=== PATIENT | male | born 1975 | race African-American/Black ===

== ENCOUNTER 2019-10-21 10:27 | Emergency (ER) | payer SELFPAY ==
[2019-10-21] MEDS ORDERED: Ketorolac Tromethamine 30 MG/ML VIAL ONE ×2 (11:24→11:28)
== END 2019-10-21 12:04 | disposition home or self-care (01) ==
LOC: ERS 10:27
DX: R51 Headache (principal); R09.81 Nasal congestion; I10 Essential (primary) hypertension; F17.210 Nicotine dependence, cigarettes, uncomplicated
CPT/HCPCS: 96372; 99283; J1885

== ENCOUNTER 2021-08-21 18:45 | Inpatient (IN) | payer MEDICAID, SELFPAY ==
[2021-08-21 19:16] LABS: #Lymphocytes 1.8 thou/uL (1.20-3.40); #Monocytes 1.3 thou/uL (0.11-0.59); #Neutrophils 9.3 thou/uL (1.40-6.50); %Basophils 0.3 % (0.0-1.0); %Eosinophils 7.5 % (0.0-10.0); %Lymphocytes 13.2 % (21.0-51.0); %Monocytes 9.7 % (0.0-10.0); %Neutrophils 69.3 % (42.0-75.0); Hemoglobin 15.3 g/dL (14.0-18.0); Mean Corpuscular HGB CONC 32.5 g/dL (32.0-36.0); Mean Corpuscular Hemoglobin 32.5 pg (27.0-31.0); Mean Platelet Volume 6.9 fL (7.4-10.4); Platelet Count 196 thou/uL (130-400); Red Blood Cell (RBC) Count 4.71 mill/uL (4.70-6.10); White Blood Cell (WBC) Count 13.5 thou/uL (4.8-10.8)
[2021-08-21 19:51] LABS: ALT (SGPT) 21 U/L (8-55); AST (SGOT) 15 U/L (5-34); Albumin 4.3 g/dL (3.5-5.0); Alkaline Phosphatase 51 U/L (40-110); Anion Gap 16 mmol/L (10-20); BUN (Urea Nitrogen) 8 mg/dL (8.9-20.6); Bilirubin, Total 0.5 mg/dL (0.2-1.2); Calc. Creatinine Clearance 0 mL/min (70-130); Calcium 8.8 mg/dL (7.8-10.44); Carbon Dioxide 26 mmol/L (22-29); Chloride 104 mmol/L (98-107); Globulin 2.9 g/dL (2.4-3.5); Glucose 182 mg/dL (70-105); Potassium 4.2 mmol/L (3.5-5.1); Protein, Total 7.2 g/dL (6.0-8.3); Sodium 142 mmol/L (136-145)
[2021-08-21] MEDS ORDERED: Furosemide 40 MG/4 ML VIAL ONE ×2 (20:35→20:36)
[2021-08-21] MEDS ORDERED: Acetaminophen 650 MG Suppository PR PRN (21:21)
[2021-08-21] MEDS ORDERED: Ondansetron ODT 4 MG TAB PO PRN (21:21)
[2021-08-21] MEDS ORDERED: Ondansetron PF 4 MG/2 ML Vial IVP PRN (21:21)
[2021-08-21] MEDS ORDERED: Acetaminophen 325 MG TAB PO PRN (21:21)
[2021-08-21] MEDS ORDERED: HumaLOG 300 UNITS/3 ML VIAL SC PRN (21:25)
[2021-08-21] MEDS ORDERED: Dextrose 5% in Water 1,000 ML IV PRN (21:25)
[2021-08-21] MEDS ORDERED: Dextrose 50% Abboject 50 ML SYRINGE SLOW IVP PRN (21:25)
[2021-08-21] MEDS ORDERED: methylPREDNISolone Sod Succ 40 MG VIAL IVP SCH (22:00)
[2021-08-21 22:34] LABS: SARS-CoV-2 NAA Rapid Test DETECTED (NotDetected)
[2021-08-21] MEDS: Azithromycin 500 MG in Sodium Chloride 0.9% 250 ML 250 ML IVPB SCH (23:37)
[2021-08-21] MEDS ORDERED: Enoxaparin Sodium 40 MG/0.4 ML SYRINGE SC SCH (23:59)
[2021-08-22] MEDS ORDERED: hydrALAZINE 20 MG/ML VIAL SLOW IVP PRN (00:09)
[2021-08-22 00:15] VITALS: BMI 44.4
[2021-08-22 00:15] LABS: Actual Bicarbonate (HCO3v) 30 mEq/L (22-28); Base Excess 3.2 mEq/L (-2.0 to +3.0); Calcium, Ionized (venous) 1.09 mmol/L (1.16-1.32); Chloride (VBG) 96 mmol/L (98-106); Hemoglobin (Hb) 16.6 g/dL (13.1-17.2); Potassium (VBG) 4.66 mmol/L (3.70-5.30); Sodium 139.1 mmol/L (133-146); pH (venous) 7.37 (7.32-7.43)
[2021-08-22] MEDS ORDERED: Benzonatate 100 MG CAP PO PRN (00:16)
[2021-08-22] MEDS ORDERED: Pantoprazole 40 MG VIAL IVP SCH (00:30)
[2021-08-22 00:52] LABS: Hemoglobin A1c 6.9 % (4.0-6.0)
[2021-08-22] MEDS ORDERED: Albuterol 200 PUFF (6.7GM INHALER) INH PRN (02:19)
[2021-08-22 03:45] LABS: #Lymphocytes 0.7 thou/uL (1.20-3.40); #Neutrophils 15.5 thou/uL (1.40-6.50); %Basophils 0.2 % (0.0-1.0); %Eosinophils 0.2 % (0.0-10.0); %Monocytes 0.3 % (0.0-10.0); %Neutrophils 95.4 % (42.0-75.0); Hemoglobin 15.7 g/dL (14.0-18.0); Mean Corpuscular Hemoglobin 31.3 pg (27.0-31.0); Mean Platelet Volume 7.2 fL (7.4-10.4); Platelet Count 200 thou/uL (130-400); RBC Distribution Width 12.9 % (11.5-14.5); Red Blood Cell (RBC) Count 5.01 mill/uL (4.70-6.10); White Blood Cell (WBC) Count 16.2 thou/uL (4.8-10.8)
[2021-08-22 04:07] LABS: Anion Gap 16 mmol/L (10-20); BUN (Urea Nitrogen) 11 mg/dL (8.9-20.6); Calc. Creatinine Clearance 164 mL/min (70-130); Calcium 9.8 mg/dL (7.8-10.44); Carbon Dioxide 28 mmol/L (22-29); Chloride 97 mmol/L (98-107); Glucose 324 mg/dL (70-105); Potassium 5.1 mmol/L (3.5-5.1); Sodium 136 mmol/L (136-145)
[2021-08-22] MEDS: HumaLOG 300 UNITS/3 ML VIAL SC PRN ×2 (05:45→11:49)
[2021-08-22] MEDS: Albuterol 200 PUFF (6.7GM INHALER) INH SCH ×3 (08:33→20:56)
[2021-08-22] MEDS ORDERED: methylPREDNISolone Sod Succ 40 MG VIAL IVP SCH ×2 (09:00→21:00)
[2021-08-22] MEDS ORDERED: Enoxaparin Sodium 40 MG/0.4 ML SYRINGE SC SCH (09:00)
[2021-08-22] MEDS: Enoxaparin Sodium 40 MG/0.4 ML SYRINGE SC SCH ×2 (09:24→20:56)
[2021-08-22] MEDS: Furosemide 40 MG/4 ML VIAL SLOW IVP SCH (09:24)
[2021-08-22] MEDS: Pantoprazole 40 MG VIAL IVP SCH (09:25)
[2021-08-22] MEDS: Ascorbic Acid 500 mg Chewable Tablet PO SCH (09:26)
[2021-08-22] MEDS: Cholecalciferol (Vitamin D3) 400 UNITS TAB PO SCH (09:26)
[2021-08-22] MEDS: guaiFENesin ER 600 MG TAB PO SCH ×2 (09:26→20:58)
[2021-08-22] MEDS: Zinc Sulfate 220 MG CAP PO SCH (09:26)
[2021-08-22] MEDS: Azithromycin 500 MG in Sodium Chloride 0.9% 250 ML 250 ML IVPB SCH (20:57)
[2021-08-22] MEDS ORDERED: Lantus 1000 UNITS/10 ML VIAL SC SCH (21:00)
[2021-08-23] MEDS: Albuterol 200 PUFF (6.7GM INHALER) INH SCH ×2 (02:01→06:38)
[2021-08-23 05:34] LABS: Band 1 % (5-11); Hemoglobin 14.7 g/dL (14.0-18.0); Lymphocytes 2 % (21-51); MDiff Complete? YES; Mean Corpuscular HGB CONC 31.4 g/dL (32.0-36.0); Mean Corpuscular Hemoglobin 31.4 pg (27.0-31.0); Mean Platelet Volume 7.3 fL (7.4-10.4); Monocytes 11 % (0-10); Neutrophil 86 % (42-75); Platelet Count 183 thou/uL (130-400); Platelet Morphology Comment Appears Adequate; RBC Distribution Width 13.2 % (11.5-14.5); RBC Morphology Normal; Red Blood Cell (RBC) Count 4.69 mill/uL (4.70-6.10); White Blood Cell (WBC) Count 23.4 thou/uL (4.8-10.8)
[2021-08-23 05:42] LABS: Anion Gap 13 mmol/L (10-20); BUN (Urea Nitrogen) 17 mg/dL (8.9-20.6); CRP (Inflammatory) 1.27 mg/dL (= or < 0.5); Calc. Creatinine Clearance 204 mL/min (70-130); Calcium 9.4 mg/dL (7.8-10.44); Carbon Dioxide 28 mmol/L (22-29); Chloride 97 mmol/L (98-107); Glucose 269 mg/dL (70-105); Potassium 4.3 mmol/L (3.5-5.1); Sodium 134 mmol/L (136-145)
[2021-08-23] MEDS ORDERED: predniSONE 20 MG TAB PO SCH (08:00)
[2021-08-23] MEDS: Ascorbic Acid 500 mg Chewable Tablet PO SCH (08:27)
[2021-08-23] MEDS: Cholecalciferol (Vitamin D3) 400 UNITS TAB PO SCH (08:27)
[2021-08-23] MEDS: Enoxaparin Sodium 40 MG/0.4 ML SYRINGE SC SCH (08:28)
[2021-08-23] MEDS: Furosemide 40 MG/4 ML VIAL SLOW IVP SCH (08:28)
[2021-08-23] MEDS: Pantoprazole 40 MG VIAL IVP SCH (08:30)
[2021-08-23] MEDS: guaiFENesin ER 600 MG TAB PO SCH (08:30)
[2021-08-23] MEDS: Zinc Sulfate 220 MG CAP PO SCH (08:30)
[2021-08-23] MEDS: HumaLOG 300 UNITS/3 ML VIAL SC PRN (11:12)
[2021-08-23 12:31] VITALS: BP 103/67; TEMP 98
== END 2021-08-23 12:24 | disposition home or self-care (01) | DRG 177 ==
LOC: ERS 18:45 → IMCU/EMU 20:18 → 2SW 08-22 14:49
PROVIDERS: ADMIT Student in an Organized Health Care Education/Training Program; ATTEND Family Medicine
DX: U07.1 COVID-19 (principal); J96.01 Acute respiratory failure with hypoxia; J44.0 Chronic obstructive pulmonary disease with (acute) lower respiratory infection; I10 Essential (primary) hypertension; E11.9 Type 2 diabetes mellitus without complications; E66.01 Morbid (severe) obesity due to excess calories; Z68.42 Body mass index [BMI] 45.0-49.9, adult; Z79.84 Long term (current) use of oral hypoglycemic drugs; Z79.51 Long term (current) use of inhaled steroids; Z79.52 Long term (current) use of systemic steroids; Z79.899 Other long term (current) drug therapy; Z87.891 Personal history of nicotine dependence
CPT/HCPCS: 36415; 36416; 71045; 80048; 80053; 82607; 82728; 82746; 82805; 83036; 83880; 84484; 85025; 85379; 86140; 93005; 94640; 94660; 96374; C9113; J0360; J0456; J1650; J1815; J1940; J2920; J7050; J7512; J7620; U0002

== ENCOUNTER 2021-08-27 16:09 | Inpatient (IN) | payer MEDICAID ==
[~2021-08-27 16:09] MED LIST: Iopamidol-370 76% 500 ML 1 ML ONE
[2021-08-27] MEDS ORDERED: Acetaminophen 500 MG TAB ONE (16:32)
[2021-08-27] MEDS ORDERED: Sodium Chloride 0.9% 100 ML ONE (16:47)
[2021-08-27] MEDS ORDERED: Vancomycin 1 GM/200 ML BAG ONE ×2 (16:47→16:48)
[2021-08-27] MEDS ORDERED: Cefepime 2 GM VIAL ONE (16:47)
[2021-08-27] MEDS ORDERED: Morphine 4 MG/ML VIAL ONE (16:48)
[2021-08-27] MEDS ORDERED: Albuterol 200 PUFF (6.7GM INHALER) ONE (16:54)
[2021-08-27] MEDS ORDERED: Dexamethasone 4 mg/ml Vial ONE (16:56)
[2021-08-27 17:00] LABS: #Lymphocytes 1.8 thou/uL (1.20-3.40); #Monocytes 0.5 thou/uL (0.11-0.59); #Neutrophils 5.6 thou/uL (1.40-6.50); %Eosinophils 0.6 % (0.0-10.0); %Lymphocytes 22.7 % (21.0-51.0); %Monocytes 6.2 % (0.0-10.0); %Neutrophils 70.5 % (42.0-75.0); Hemoglobin 15.2 g/dL (14.0-18.0); Mean Corpuscular HGB CONC 32.6 g/dL (32.0-36.0); Mean Corpuscular Hemoglobin 31.9 pg (27.0-31.0); Mean Corpuscular Volume 97.8 fL (78.0-98.0); Mean Platelet Volume 7.5 fL (7.4-10.4); Platelet Count 157 thou/uL (130-400); RBC Distribution Width 12.7 % (11.5-14.5); Red Blood Cell (RBC) Count 4.77 mill/uL (4.70-6.10)
[2021-08-27 17:21] LABS: ALT (SGPT) 23 U/L (8-55); AST (SGOT) 21 U/L (5-34); Albumin 3.8 g/dL (3.5-5.0); Alkaline Phosphatase 42 U/L (40-110); Anion Gap 11 mmol/L (10-20); BUN (Urea Nitrogen) 9 mg/dL (8.9-20.6); Bilirubin, Total 0.7 mg/dL (0.2-1.2); Calc. Creatinine Clearance 0 mL/min (70-130); Calcium 8.9 mg/dL (7.8-10.44); Carbon Dioxide 33 mmol/L (22-29); Chloride 94 mmol/L (98-107); Globulin 3.4 g/dL (2.4-3.5); Glucose 153 mg/dL (70-105); Lipase 5 U/L (8-78); Potassium 3.6 mmol/L (3.5-5.1); Protein, Total 7.2 g/dL (6.0-8.3); Sodium 134 mmol/L (136-145)
[2021-08-27] MEDS ORDERED: HYDROcodone/Acetaminophen 7.5/325 mg Tablet PO PRN (20:21)
[2021-08-27] MEDS ORDERED: Bisacodyl 5 MG TAB PO PRN (20:21)
[2021-08-27] MEDS ORDERED: HYDROcodone/Acetaminophen 5/325 mg Tablet PO PRN (20:21)
[2021-08-27] MEDS ORDERED: Calcium Carbonate 500 MG ChewTAB PO PRN (20:21)
[2021-08-27] MEDS ORDERED: Senokot S 8.6-50 MG TAB PO PRN (20:21)
[2021-08-27] MEDS ORDERED: Guaifenesin DM 100-10/5 ML UDCUP PO PRN (20:21)
[2021-08-27] MEDS ORDERED: Ondansetron PF 4 MG/2 ML Vial IVP PRN (20:21)
[2021-08-27] MEDS ORDERED: Acetaminophen 325 MG TAB PO PRN (20:21)
[2021-08-27] MEDS ORDERED: Melatonin 3 MG TAB PO PRN (20:28)
[2021-08-27] MEDS ORDERED: Dextrose 50% Abboject 50 ML SYRINGE SLOW IVP PRN (20:56)
[2021-08-27] MEDS ORDERED: Dextrose 5% in Water 1,000 ML IV PRN (20:56)
[2021-08-27] MEDS ORDERED: Dexamethasone 10 MG/ML VIAL SLOW IVP SCH (21:00)
[2021-08-27] MEDS ORDERED: Cholecalciferol (Vitamin D3) 400 UNITS TAB PO SCH (21:15)
[2021-08-27] MEDS ORDERED: Zinc Sulfate 220 MG CAP PO SCH (21:15)
[2021-08-27] MEDS ORDERED: Ascorbic Acid 500 mg Chewable Tablet PO SCH (21:15)
[2021-08-27 21:18] LABS: Troponin I Less than 0.010 ng/mL (< 0.028)
[2021-08-27] MEDS: Apixaban 5 MG TAB PO SCH (21:27)
[2021-08-27] MEDS: Famotidine/PF 20 mg/2ml Vial SLOW IVP SCH (21:27)
[2021-08-27 21:55] VITALS: BMI 45.0
[2021-08-27] MEDS ORDERED: Vancomycin 1.5 GRAM/300 ML BAG 1.5 GM in Premix Bag 1 BAG IVPB SCH (22:00)
[2021-08-27] MEDS ORDERED: hydrALAZINE 20 MG/ML VIAL SLOW IVP PRN (22:09)
[2021-08-27] MEDS ORDERED: Non-Formulary Item 1 EACH (Albuterol Sulfate Hfa (Or) 200 PUFF Inh) INH SCH (23:59)
[2021-08-28] MEDS: Albuterol 200 PUFF (6.7GM INHALER) INH SCH ×4 (00:13→18:30)
[2021-08-28] MEDS: Cefepime 2 GM in Sodium Chloride 0.9% 100 ML IVPB SCH ×2 (05:09→16:25)
[2021-08-28] MEDS ORDERED: Dexamethasone 10 MG/ML VIAL SLOW IVP SCH (06:00)
[2021-08-28] MEDS: VANCOMYCIN 2 GRAM/400 ML BAG 2 GM in Premix Bag 1 BAG IVPB SCH ×3 (06:21→22:06)
[2021-08-28] MEDS: Famotidine/PF 20 mg/2ml Vial SLOW IVP SCH ×2 (08:44→20:38)
[2021-08-28] MEDS: Apixaban 5 MG TAB PO SCH ×2 (08:44→20:39)
[2021-08-28] MEDS: Ascorbic Acid 500 mg Chewable Tablet PO SCH (08:44)
[2021-08-28] MEDS: Cholecalciferol (Vitamin D3) 400 UNITS TAB PO SCH (08:44)
[2021-08-28] MEDS ORDERED: Zinc Sulfate 220 MG CAP PO SCH (09:00)
[2021-08-28 09:15] LABS: Albumin 3.6 g/dL (3.5-5.0)
[2021-08-28 09:16] LABS: Chloride 97 mmol/L (98-107); Potassium 4.5 mmol/L (3.5-5.1); Sodium 133 mmol/L (136-145)
[2021-08-28 09:17] LABS: Glucose 250 mg/dL (70-105)
[2021-08-28 09:18] LABS: Globulin 3.5 g/dL (2.4-3.5); Protein, Total 7.1 g/dL (6.0-8.3)
[2021-08-28 09:19] LABS: Anion Gap 14 mmol/L (10-20); Carbon Dioxide 27 mmol/L (22-29)
[2021-08-28 09:20] LABS: Alkaline Phosphatase 41 U/L (40-110); Bilirubin, Total 0.5 mg/dL (0.2-1.2)
[2021-08-28 09:21] LABS: Calc. Creatinine Clearance 240 mL/min (70-130)
[2021-08-28 09:22] LABS: BUN (Urea Nitrogen) 10 mg/dL (8.9-20.6)
[2021-08-28 09:23] LABS: AST (SGOT) 17 U/L (5-34)
[2021-08-28 09:24] LABS: ALT (SGPT) 23 U/L (8-55)
[2021-08-28] MEDS: HumaLOG 300 UNITS/3 ML VIAL SC PRN ×4 (11:28→22:06)
[2021-08-28] MEDS ORDERED: metFORMIN 500 MG TAB PO SCH (17:00)
[2021-08-28] MEDS: Dexamethasone 10 MG/ML VIAL SLOW IVP SCH (20:39)
[2021-08-28] MEDS: Lantus 1000 UNITS/10 ML VIAL SC SCH ×3 (20:39→22:05)
[2021-08-28 21:38] LABS: Vancomycin, Trough 13.3 ug/mL
[2021-08-29] MEDS: Albuterol 200 PUFF (6.7GM INHALER) INH SCH ×4 (00:23→18:26)
[2021-08-29] MEDS: HumaLOG 300 UNITS/3 ML VIAL SC PRN ×3 (05:33→17:05)
[2021-08-29] MEDS: Cefepime 2 GM in Sodium Chloride 0.9% 100 ML IVPB SCH ×2 (05:33→17:04)
[2021-08-29] MEDS: VANCOMYCIN 2 GRAM/400 ML BAG 2 GM in Premix Bag 1 BAG IVPB SCH (06:26)
[2021-08-29 07:26] LABS: #Eosinphils 0.1 thou/uL (0.0-0.7); #Lymphocytes 1.1 thou/uL (1.20-3.40); #Monocytes 0.6 thou/uL (0.11-0.59); #Neutrophils 10.4 thou/uL (1.40-6.50); %Eosinophils 0.6 % (0.0-10.0); %Lymphocytes 9.3 % (21.0-51.0); %Monocytes 4.7 % (0.0-10.0); %Neutrophils 85.4 % (42.0-75.0); Hemoglobin 15.4 g/dL (14.0-18.0); Mean Corpuscular HGB CONC 31.8 g/dL (32.0-36.0); Mean Corpuscular Hemoglobin 31.4 pg (27.0-31.0); Mean Corpuscular Volume 98.9 fL (78.0-98.0); Mean Platelet Volume 7.8 fL (7.4-10.4); Platelet Count 221 thou/uL (130-400); RBC Distribution Width 12.7 % (11.5-14.5); White Blood Cell (WBC) Count 12.2 thou/uL (4.8-10.8)
[2021-08-29 07:50] LABS: ALT (SGPT) 21 U/L (8-55); AST (SGOT) 14 U/L (5-34); Albumin 3.7 g/dL (3.5-5.0); Alkaline Phosphatase 41 U/L (40-110); Anion Gap 12 mmol/L (10-20); BUN (Urea Nitrogen) 14 mg/dL (8.9-20.6); Bilirubin, Total 0.5 mg/dL (0.2-1.2); CRP (Inflammatory) 2.21 mg/dL (= or < 0.5); Calc. Creatinine Clearance 220 mL/min (70-130); Calcium 9.2 mg/dL (7.8-10.44); Carbon Dioxide 29 mmol/L (22-29); Chloride 96 mmol/L (98-107); Globulin 3.4 g/dL (2.4-3.5); Glucose 274 mg/dL (70-105); Potassium 4.4 mmol/L (3.5-5.1); Protein, Total 7.1 g/dL (6.0-8.3); Sodium 133 mmol/L (136-145)
[2021-08-29] MEDS: Lantus 1000 UNITS/10 ML VIAL SC SCH ×2 (08:47→20:57)
[2021-08-29] MEDS: Aspirin Chewable 81 MG TAB PO SCH (08:48)
[2021-08-29] MEDS: Famotidine/PF 20 mg/2ml Vial SLOW IVP SCH ×2 (08:48→20:58)
[2021-08-29] MEDS: Dexamethasone 10 MG/ML VIAL SLOW IVP SCH ×2 (08:48→20:58)
[2021-08-29] MEDS: Ascorbic Acid 500 mg Chewable Tablet PO SCH (08:48)
[2021-08-29] MEDS: Cholecalciferol (Vitamin D3) 400 UNITS TAB PO SCH (08:48)
[2021-08-29] MEDS: Zinc Sulfate 220 MG CAP PO SCH (08:48)
[2021-08-29] MEDS: Apixaban 5 MG TAB PO SCH ×2 (08:48→20:57)
[2021-08-29] MEDS: metFORMIN 500 MG TAB PO SCH ×3 (08:49→20:57)
[2021-08-30] MEDS: Albuterol 200 PUFF (6.7GM INHALER) INH SCH ×3 (02:24→13:20)
[2021-08-30] MEDS: Cefepime 2 GM in Sodium Chloride 0.9% 100 ML IVPB SCH ×2 (04:59→15:39)
[2021-08-30] MEDS: Aspirin Chewable 81 MG TAB PO SCH (08:24)
[2021-08-30] MEDS: Cholecalciferol (Vitamin D3) 400 UNITS TAB PO SCH (08:24)
[2021-08-30] MEDS: Apixaban 5 MG TAB PO SCH ×2 (08:24→19:59)
[2021-08-30] MEDS: Zinc Sulfate 220 MG CAP PO SCH (08:24)
[2021-08-30] MEDS: Ascorbic Acid 500 mg Chewable Tablet PO SCH (08:24)
[2021-08-30] MEDS: metFORMIN 500 MG TAB PO SCH ×3 (08:25→19:56)
[2021-08-30] MEDS: Lantus 1000 UNITS/10 ML VIAL SC SCH ×2 (08:25→19:57)
[2021-08-30] MEDS: Dexamethasone 10 MG/ML VIAL SLOW IVP SCH ×2 (08:26→19:56)
[2021-08-30] MEDS: Famotidine/PF 20 mg/2ml Vial SLOW IVP SCH ×2 (08:27→19:56)
[2021-08-30] MEDS: HumaLOG 300 UNITS/3 ML VIAL SC PRN ×3 (13:20→20:06)
[2021-08-31] MEDS: Albuterol 200 PUFF (6.7GM INHALER) INH SCH ×6 (02:27→19:24)
[2021-08-31] MEDS: Cefepime 2 GM in Sodium Chloride 0.9% 100 ML IVPB SCH ×2 (04:07→16:27)
[2021-08-31] MEDS: HumaLOG 300 UNITS/3 ML VIAL SC PRN ×4 (05:23→20:04)
[2021-08-31 07:39] LABS: Albumin 3.6 g/dL (3.5-5.0)
[2021-08-31 07:40] LABS: Chloride 95 mmol/L (98-107); Potassium 4.5 mmol/L (3.5-5.1); Sodium 132 mmol/L (136-145)
[2021-08-31 07:41] LABS: Calcium 9.3 mg/dL (7.8-10.44); Glucose 308 mg/dL (70-105)
[2021-08-31 07:42] LABS: Globulin 3.4 g/dL (2.4-3.5)
[2021-08-31 07:43] LABS: Anion Gap 16 mmol/L (10-20); Bilirubin, Total 0.5 mg/dL (0.2-1.2); Carbon Dioxide 26 mmol/L (22-29)
[2021-08-31 07:44] LABS: Alkaline Phosphatase 51 U/L (40-110); CRP (Inflammatory) 0.71 mg/dL (= or < 0.5)
[2021-08-31 07:45] LABS: BUN (Urea Nitrogen) 17 mg/dL (8.9-20.6); Calc. Creatinine Clearance 201 mL/min (70-130)
[2021-08-31 07:47] LABS: ALT (SGPT) 18 U/L (8-55); AST (SGOT) 12 U/L (5-34)
[2021-08-31] MEDS: Ascorbic Acid 500 mg Chewable Tablet PO SCH (09:49)
[2021-08-31] MEDS: Apixaban 5 MG TAB PO SCH ×2 (09:49→19:57)
[2021-08-31] MEDS: Cholecalciferol (Vitamin D3) 400 UNITS TAB PO SCH (09:49)
[2021-08-31] MEDS: Aspirin Chewable 81 MG TAB PO SCH (09:49)
[2021-08-31] MEDS: metFORMIN 500 MG TAB PO SCH ×3 (09:49→19:57)
[2021-08-31] MEDS: Zinc Sulfate 220 MG CAP PO SCH (09:49)
[2021-08-31] MEDS: Dexamethasone 10 MG/ML VIAL SLOW IVP SCH ×2 (09:50→19:57)
[2021-08-31] MEDS: Famotidine/PF 20 mg/2ml Vial SLOW IVP SCH ×2 (09:50→19:57)
[2021-08-31] MEDS: Lantus 1000 UNITS/10 ML VIAL SC SCH ×2 (09:52→19:57)
[2021-09-01] MEDS: Albuterol 200 PUFF (6.7GM INHALER) INH SCH ×4 (00:12→19:10)
[2021-09-01] MEDS: HumaLOG 300 UNITS/3 ML VIAL SC PRN ×5 (04:40→20:10)
[2021-09-01] MEDS ORDERED: Dextrose 5% in Water 1,000 ML IV PRN (07:56)
[2021-09-01] MEDS ORDERED: Dextrose 50% Abboject 50 ML SYRINGE SLOW IVP PRN (07:56)
[2021-09-01] MEDS: metFORMIN 500 MG TAB PO SCH ×2 (08:33→16:16)
[2021-09-01] MEDS: Ascorbic Acid 500 mg Chewable Tablet PO SCH (08:33)
[2021-09-01] MEDS: Aspirin Chewable 81 MG TAB PO SCH (08:33)
[2021-09-01] MEDS: Cholecalciferol (Vitamin D3) 400 UNITS TAB PO SCH (08:33)
[2021-09-01] MEDS: Dexamethasone 10 MG/ML VIAL SLOW IVP SCH ×2 (08:33→20:09)
[2021-09-01] MEDS: Apixaban 5 MG TAB PO SCH ×2 (08:33→20:09)
[2021-09-01] MEDS: Famotidine/PF 20 mg/2ml Vial SLOW IVP SCH ×2 (08:33→20:09)
[2021-09-01] MEDS: Zinc Sulfate 220 MG CAP PO SCH (08:33)
[2021-09-01] MEDS: Lantus 1000 UNITS/10 ML VIAL SC SCH ×2 (09:49→20:09)
[2021-09-01] MEDS ORDERED: metFORMIN 500 MG TAB PO SCH (19:45)
[2021-09-01] MEDS: Famotidine 20 MG TAB PO SCH (20:09)
[2021-09-02] MEDS: Albuterol 200 PUFF (6.7GM INHALER) INH SCH ×4 (00:05→21:06)
[2021-09-02] MEDS: HumaLOG 300 UNITS/3 ML VIAL SC PRN ×4 (04:26→21:08)
[2021-09-02 08:00] LABS: Anion Gap 17 mmol/L (10-20); BUN (Urea Nitrogen) 20 mg/dL (8.9-20.6); CRP (Inflammatory) Less than 0.50 mg/dL (= or < 0.5); Calc. Creatinine Clearance 206 mL/min (70-130); Calcium 9.4 mg/dL (7.8-10.44); Carbon Dioxide 25 mmol/L (22-29); Chloride 95 mmol/L (98-107); Glucose 314 mg/dL (70-105); Potassium 4.9 mmol/L (3.5-5.1); Sodium 132 mmol/L (136-145)
[2021-09-02] MEDS: Aspirin Chewable 81 MG TAB PO SCH (08:16)
[2021-09-02] MEDS: Apixaban 5 MG TAB PO SCH ×2 (08:16→21:06)
[2021-09-02] MEDS: Zinc Sulfate 220 MG CAP PO SCH (08:16)
[2021-09-02] MEDS: Ascorbic Acid 500 mg Chewable Tablet PO SCH (08:16)
[2021-09-02] MEDS: Dexamethasone 10 MG/ML VIAL SLOW IVP SCH ×2 (08:16→21:10)
[2021-09-02] MEDS: metFORMIN 500 MG TAB PO SCH ×3 (08:16→15:49)
[2021-09-02] MEDS: Cholecalciferol (Vitamin D3) 400 UNITS TAB PO SCH (08:17)
[2021-09-02] MEDS: Famotidine/PF 20 mg/2ml Vial SLOW IVP SCH ×2 (08:17→21:07)
[2021-09-02] MEDS: Famotidine 20 MG TAB PO SCH ×2 (08:17→21:06)
[2021-09-02] MEDS: Lantus 1000 UNITS/10 ML VIAL SC SCH ×2 (08:17→21:07)
[2021-09-02 08:28] LABS: Hemoglobin 16.8 g/dL (14.0-18.0); Mean Corpuscular HGB CONC 32.1 g/dL (32.0-36.0); Mean Corpuscular Hemoglobin 31.5 pg (27.0-31.0); Mean Platelet Volume 7.3 fL (7.4-10.4); Platelet Count 389 thou/uL (130-400); RBC Distribution Width 12.8 % (11.5-14.5); Red Blood Cell (RBC) Count 5.35 mill/uL (4.70-6.10); White Blood Cell (WBC) Count 24.3 thou/uL (4.8-10.8)
[2021-09-02 08:45] LABS: Band 8 % (5-11); Lymphocytes 12 % (21-51); MDiff Complete? YES; Monocytes 2 % (0-10); Neutrophil 78 % (42-75); Nucleated RBC 1 % (0); Platelet Morphology Comment Appears Adequate; Polychromasia SLIGHT = 2-3 cells (100X) (0-2/hpf)
[2021-09-03] MEDS: Albuterol 200 PUFF (6.7GM INHALER) INH SCH ×2 (01:31→06:08)
[2021-09-03] MEDS: HumaLOG 300 UNITS/3 ML VIAL SC PRN ×2 (06:07→11:55)
[2021-09-03 07:56] VITALS: BP 134/84; TEMP 97.7
[2021-09-03] MEDS: Dexamethasone 10 MG/ML VIAL SLOW IVP SCH (08:44)
[2021-09-03] MEDS: Ascorbic Acid 500 mg Chewable Tablet PO SCH (08:45)
[2021-09-03] MEDS: Lantus 1000 UNITS/10 ML VIAL SC SCH (08:45)
[2021-09-03] MEDS: Famotidine 20 MG TAB PO SCH (08:45)
[2021-09-03] MEDS: Cholecalciferol (Vitamin D3) 400 UNITS TAB PO SCH (08:45)
[2021-09-03] MEDS: Zinc Sulfate 220 MG CAP PO SCH (08:45)
[2021-09-03] MEDS: Famotidine/PF 20 mg/2ml Vial SLOW IVP SCH (08:45)
[2021-09-03] MEDS: Apixaban 5 MG TAB PO SCH (08:45)
[2021-09-03] MEDS: metFORMIN 500 MG TAB PO SCH ×2 (08:45→11:56)
[2021-09-03] MEDS: Aspirin Chewable 81 MG TAB PO SCH (08:45)
== END 2021-09-03 13:30 | disposition home or self-care (01) | DRG 871 ==
LOC: ERS 16:09 → T4-A 18:30
PROVIDERS: ADMIT Family Medicine; ATTEND Internal Medicine
PROC: 3E0333Z Introduction of Anti-inflammatory into Peripheral Vein, Percutaneous Approach (ICD-10-PCS; principal; 2021-08-27)
PROC: 8E0ZXY6 Isolation (ICD-10-PCS; 2021-08-27)
PROC: 5A09357 Assistance with Respiratory Ventilation, Less than 24 Consecutive Hours, Continuous Positive Airway Pressure (ICD-10-PCS; 2021-08-27)
DX: A41.89 Other specified sepsis (principal); U07.1 COVID-19; J12.82 Pneumonia due to coronavirus disease 2019; J96.01 Acute respiratory failure with hypoxia; Z68.42 Body mass index [BMI] 45.0-49.9, adult; J44.0 Chronic obstructive pulmonary disease with (acute) lower respiratory infection; E66.01 Morbid (severe) obesity due to excess calories; I10 Essential (primary) hypertension; G47.33 Obstructive sleep apnea (adult) (pediatric); E11.65 Type 2 diabetes mellitus with hyperglycemia; T38.0X5A Adverse effect of glucocorticoids and synthetic analogues, initial encounter; Z28.21 Immunization not carried out because of patient refusal; Z79.01 Long term (current) use of anticoagulants; Z87.891 Personal history of nicotine dependence; Z99.89 Dependence on other enabling machines and devices; Z79.899 Other long term (current) drug therapy; Z79.84 Long term (current) use of oral hypoglycemic drugs; Z79.52 Long term (current) use of systemic steroids; Z98.890 Other specified postprocedural states
CPT/HCPCS: 36415; 36416; 71045; 71275; 80048; 80053; 80202; 83605; 83690; 83880; 84484; 85025; 86140; 87040; 93005; 94760; 96365; 96367; 96375; J0692; J1100; J1815; J2270; J3370; J3490; Q9967; S0028

== ENCOUNTER 2021-09-09 10:04 | Inpatient (IN) | payer MEDICAID, SELFPAY ==
[2021-09-09] MEDS ORDERED: Ondansetron PF 4 MG/2 ML Vial ONE (10:33)
[2021-09-09 10:41] LABS: Hemoglobin 15.6 g/dL (14.0-18.0); Mean Corpuscular HGB CONC 31.1 g/dL (32.0-36.0); Mean Corpuscular Hemoglobin 30.6 pg (27.0-31.0); Mean Corpuscular Volume 98.6 fL (78.0-98.0); Mean Platelet Volume 7.3 fL (7.4-10.4); Platelet Count 251 thou/uL (130-400); White Blood Cell (WBC) Count 18.3 thou/uL (4.8-10.8)
[2021-09-09 10:56] LABS: CRP (Inflammatory) 14.65 mg/dL (= or < 0.5); Magnesium 1.8 mg/dL (1.6-2.6)
[2021-09-09 11:18] LABS: Band 1 % (5-11); Lymphocytes 2 % (21-51); MDiff Complete? YES; Monocytes 8 % (0-10); Neutrophil 86 % (42-75); RBC Morphology Normal; Reactive Lymphocytes 3 % (0-10)
[2021-09-09 11:24] LABS: CKMB 1.5 ng/mL (0-6.6)
[2021-09-09] MEDS ORDERED: Dexamethasone 10 MG/ML VIAL ONE (12:15)
[2021-09-09] MEDS ORDERED: Enoxaparin Sodium 100 MG/ML SYRINGE ONE (12:15)
[2021-09-09] MEDS ORDERED: Enoxaparin Sodium 40 MG/0.4 ML SYRINGE ONE (12:15)
[2021-09-09 12:19] LABS: ALT (SGPT) 27 U/L (8-55); AST (SGOT) 16 U/L (5-34); Albumin 3.1 g/dL (3.5-5.0); Alkaline Phosphatase 54 U/L (40-110); Anion Gap 16 mmol/L (10-20); BUN (Urea Nitrogen) 11 mg/dL (8.9-20.6); Bilirubin, Total 0.6 mg/dL (0.2-1.2); Calc. Creatinine Clearance 0 mL/min (70-130); Calcium 8.5 mg/dL (7.8-10.44); Carbon Dioxide 25 mmol/L (22-29); Chloride 96 mmol/L (98-107); Globulin 3.2 g/dL (2.4-3.5); Glucose 351 mg/dL (70-105); Potassium 4.8 mmol/L (3.5-5.1); Protein, Total 6.3 g/dL (6.0-8.3); Sodium 132 mmol/L (136-145)
[2021-09-09 12:59] LABS: SARS-CoV-2 NAA Rapid Test DETECTED (NotDetected)
[2021-09-09] MEDS ORDERED: HYDROcodone/Acetaminophen 5/325 mg Tablet PO PRN ×2 (13:21)
[2021-09-09] MEDS ORDERED: Ondansetron ODT 4 MG TAB SL PRN (13:30)
[2021-09-09] MEDS ORDERED: Ondansetron PF 4 MG/2 ML Vial IVP PRN (13:30)
[2021-09-09] MEDS ORDERED: Acetaminophen 325 MG TAB PO PRN (13:30)
[2021-09-09 13:40] LABS: Analyzer IN Cardio ER; Base Excess (BEa) 3.2 mEq/L (-2.0 to +3.0); CO2 Tension 42.9 mmHg (35.0-45.0); Calcium, Ionized (arterial) 1.13 mmol/L (1.12-1.30); Carboxyhemoglobin (COHb) 0.9 gm% (0.0-3.0); Hemoglobin (Hb) 16.7 g/dL (14.0-18.0); Potassium - ABG Lab 4.74 mmol/L (3.70-5.30); pH, Arterial 7.43 (7.35-7.45)
[2021-09-09 13:44] LABS: Puncture Site RBA
[2021-09-09 13:45] LABS: ALV-art Gradient 537.075 mmHg (0-20)
[2021-09-09 14:22] LABS: Bacteria/HPF None Seen HPF (None Seen); Bilirubin Negative (Negative); Blood, Urine 1+ (Negative); Clarity Clear (Clear); Glucose, Urine (Dipstick) Greater than 1000 mg/dL (Negative); Ketone, Urine Negative (Negative); Leukocyte Negative Leu/uL (Negative); Nitrite Negative (Negative); Protein, Urine (Dipstick) 50 mg/dL (Neg-Trace); RBC/HPF 0-3 HPF (0-3); Squamous Epithelial 0-3 HPF (0-3); WBC/HPF 0-3 HPF (0-3); pH, Urine 5.5 (5.0-9.0)
[2021-09-09 14:22] LABS: Troponin I 0.179 ng/mL (< 0.028)
[2021-09-09 14:23] LABS: Specific Gravity, Urine 1.051 (1.002-1.036)
[2021-09-09] MEDS: Cefepime 2 GM in Sodium Chloride 0.9% 100 ML IVPB SCH ×2 (16:06→23:00)
[2021-09-09] MEDS: Insulin Regular 300 UNITS/3 ML VIAL SC PRN ×2 (16:24→22:58)
[2021-09-09 16:50] LABS: Troponin I 0.145 ng/mL (< 0.028)
[2021-09-09] MEDS ORDERED: Pharmacy to Dose BARICITINIB IVPB PRN (18:26)
[2021-09-09] MEDS ORDERED: BARICITINIB 2 MG TAB PO SCH (18:30)
[2021-09-09] MEDS: VANCOMYCIN 2 GRAM/400 ML BAG 2 GM in Premix Bag 1 BAG IVPB SCH (19:02)
[2021-09-09] MEDS: Enoxaparin Sodium 40 MG/0.4 ML SYRINGE SC SCH (21:20)
[2021-09-09] MEDS: Dexamethasone 10 MG/ML VIAL SLOW IVP SCH (21:20)
[2021-09-09] MEDS: Mometasone 200 MCG/Formoterol 5 MCG 120 PUFF INHALER INH SCH (21:42)
[2021-09-10] MEDS: VANCOMYCIN 2 GRAM/400 ML BAG 2 GM in Premix Bag 1 BAG IVPB SCH ×3 (01:19→18:09)
[2021-09-10] MEDS: Insulin Regular 300 UNITS/3 ML VIAL SC PRN ×4 (05:08→21:46)
[2021-09-10 08:10] LABS: Actual Bicarbonate (HCO3v) 27 mEq/L (22-28); Base Excess 0.1 mEq/L (-2.0 to +3.0); Calcium, Ionized (venous) 1.11 mmol/L (1.16-1.32); Chloride (VBG) 97 mmol/L (98-106); Hemoglobin (Hb) 16.4 g/dL (13.1-17.2); Potassium (VBG) 5.35 mmol/L (3.70-5.30); Sodium 135.5 mmol/L (133-146); pH (venous) 7.34 (7.32-7.43)
[2021-09-10 08:28] LABS: #Lymphocytes 1.2 thou/uL (1.20-3.40); #Monocytes 0.3 thou/uL (0.11-0.59); #Neutrophils 13.9 thou/uL (1.40-6.50); %Basophils 0.1 % (0.0-1.0); %Eosinophils 0.1 % (0.0-10.0); %Lymphocytes 7.6 % (21.0-51.0); %Monocytes 2.1 % (0.0-10.0); %Neutrophils 90.1 % (42.0-75.0); Hemoglobin 16.1 g/dL (14.0-18.0); Mean Corpuscular HGB CONC 31.9 g/dL (32.0-36.0); Mean Corpuscular Hemoglobin 32.1 pg (27.0-31.0); Mean Platelet Volume 7.2 fL (7.4-10.4); Platelet Count 234 thou/uL (130-400); RBC Distribution Width 12.8 % (11.5-14.5); Red Blood Cell (RBC) Count 5.03 mill/uL (4.70-6.10); White Blood Cell (WBC) Count 15.4 thou/uL (4.8-10.8)
[2021-09-10 08:50] LABS: ALT (SGPT) 23 U/L (8-55); AST (SGOT) 17 U/L (5-34); Albumin 3.2 g/dL (3.5-5.0); Alkaline Phosphatase 81 U/L (40-110); Anion Gap 16 mmol/L (10-20); BUN (Urea Nitrogen) 27 mg/dL (8.9-20.6); Bilirubin, Total 0.5 mg/dL (0.2-1.2); Calc. Creatinine Clearance 165 mL/min (70-130); Calcium 9.1 mg/dL (7.8-10.44); Carbon Dioxide 26 mmol/L (22-29); Chloride 98 mmol/L (98-107); Globulin 3.7 g/dL (2.4-3.5); Glucose 365 mg/dL (70-105); Potassium 5.4 mmol/L (3.5-5.1); Protein, Total 6.9 g/dL (6.0-8.3); Sodium 135 mmol/L (136-145)
[2021-09-10] MEDS: Cefepime 2 GM in Sodium Chloride 0.9% 100 ML IVPB SCH ×3 (09:08→23:49)
[2021-09-10] MEDS: Dexamethasone 10 MG/ML VIAL SLOW IVP SCH ×2 (09:09→21:11)
[2021-09-10] MEDS: Enoxaparin Sodium 40 MG/0.4 ML SYRINGE SC SCH ×2 (09:09→21:11)
[2021-09-10] MEDS: Mometasone 200 MCG/Formoterol 5 MCG 120 PUFF INHALER INH SCH ×2 (10:15→18:31)
[2021-09-10] MEDS: Micafungin 100 MG in Sodium Chloride 0.9% 100 ML IVPB SCH (11:24)
[2021-09-10] MEDS ORDERED: Midazolam HCl 2 mg/2 ml Vial ONE (15:07)
[2021-09-10] MEDS ORDERED: Fentanyl 100 MCG/2 ML VIAL ONE (15:07)
[2021-09-10] MEDS ORDERED: Propofol 1,000 MG/100 ML VIAL IV ONE (15:08)
[2021-09-10] MEDS ORDERED: Vecuronium 10 MG VIAL ONE (15:17)
[2021-09-10] MEDS ORDERED: Ventilator Sedation Protocol 1 EACH FS ONE (15:39)
[2021-09-10] MEDS ORDERED: Lorazepam 2 MG/ML VIAL ONE (15:42)
[2021-09-10] MEDS ORDERED: Fentanyl CADD 100 ML IV SCH (15:45)
[2021-09-10] MEDS ORDERED: Succinylcholine Chloride 200 MG/10 ML VIAL IVP SCH (15:45)
[2021-09-10] MEDS ORDERED: Rocuronium Bromide 10 MG/ML (10ML VIAL) IVP SCH (15:45)
[2021-09-10] MEDS ORDERED: Propofol 1,000 MG/100 ML VIAL IV SCH (15:45)
[2021-09-10] MEDS ORDERED: DISCONTINUE PREVIOUS NARCOTIC PAIN MEDICATIONS AND BENZODIAZEPINES FS SCH ×2 (15:45→16:45)
[2021-09-10] MEDS ORDERED: Propofol BOLUS 1,000 MG/100 ML VIAL IV PRN ×2 (15:45→16:45)
[2021-09-10] MEDS ORDERED: Fentanyl BOLUS 250 ML IVPB PRN ×2 (15:45→16:45)
[2021-09-10] MEDS ORDERED: Morphine 4 MG/ML VIAL SLOW IVP PRN ×2 (15:47→16:40)
[2021-09-10 16:18] LABS: Actual Bicarbonate (HCO3a) 27.5 mEq/L (22-28); Calcium, Ionized (arterial) 1.17 mmol/L (1.12-1.30); Carboxyhemoglobin (COHb) 1.1 gm% (0.0-3.0); Hemoglobin (Hb) 15.7 g/dL (14.0-18.0); Potassium - ABG Lab 4.94 mmol/L (3.70-5.30); pH, Arterial 7.27 (7.35-7.45)
[2021-09-10 16:20] LABS: CO2 Tension 61.7 mmHg (35.0-45.0); O2 Tension (PaO2), arterial 46.4 mmHg (80.0-100.0); Puncture Site LRA
[2021-09-10 16:21] LABS: ALV-art Gradient 589.475 mmHg (0-20)
[2021-09-10] MEDS: Lorazepam 2 MG/ML VIAL SLOW IVP PRN (17:06)
[2021-09-10] MEDS: Propofol 1,000 MG/100 ML VIAL IV PRN ×2 (17:22→23:20)
[2021-09-10] MEDS: Vecuronium 10 MG VIAL IVP PRN ×3 (17:22→22:11)
[2021-09-10] MEDS: BARICITINIB 2 MG TAB PO SCH (21:10)
[2021-09-11] MEDS ORDERED: VANCOMYCIN 1.25 GM/250 ML BAG 1.25 GM in Premix Bag 1 BAG IVPB SCH (01:00)
[2021-09-11] MEDS: Propofol 1,000 MG/100 ML VIAL IV PRN ×8 (02:01→23:39)
[2021-09-11] MEDS: Insulin Regular 300 UNITS/3 ML VIAL SC PRN (04:17)
[2021-09-11 04:34] LABS: #Lymphocytes 0.5 thou/uL (1.20-3.40); #Monocytes 0.6 thou/uL (0.11-0.59); #Neutrophils 14.5 thou/uL (1.40-6.50); %Basophils 0.1 % (0.0-1.0); %Eosinophils 0.1 % (0.0-10.0); %Lymphocytes 3.2 % (21.0-51.0); %Monocytes 3.8 % (0.0-10.0); %Neutrophils 92.8 % (42.0-75.0); Mean Corpuscular HGB CONC 32.4 g/dL (32.0-36.0); Mean Corpuscular Hemoglobin 32.3 pg (27.0-31.0); Mean Corpuscular Volume 99.7 fL (78.0-98.0); Mean Platelet Volume 7.2 fL (7.4-10.4); Platelet Count 229 thou/uL (130-400); RBC Distribution Width 12.8 % (11.5-14.5); Red Blood Cell (RBC) Count 4.63 mill/uL (4.70-6.10); White Blood Cell (WBC) Count 15.7 thou/uL (4.8-10.8)
[2021-09-11 04:45] LABS: ALT (SGPT) 19 U/L (8-55); AST (SGOT) 10 U/L (5-34); Albumin 3.1 g/dL (3.5-5.0); Alkaline Phosphatase 87 U/L (40-110); Bilirubin, Direct 0.3 mg/dL (0.1-0.3); Bilirubin, Total 0.5 mg/dL (0.2-1.2); Protein, Total 6.6 g/dL (6.0-8.3)
[2021-09-11 04:47] LABS: ALT (SGPT) 19 U/L (8-55); AST (SGOT) 11 U/L (5-34); Albumin 3.1 g/dL (3.5-5.0); Alkaline Phosphatase 87 U/L (40-110); Anion Gap 18 mmol/L (10-20); BUN (Urea Nitrogen) 27 mg/dL (8.9-20.6); Bilirubin, Total 0.6 mg/dL (0.2-1.2); Calc. Creatinine Clearance 182 mL/min (70-130); Calcium 9.6 mg/dL (7.8-10.44); Carbon Dioxide 26 mmol/L (22-29); Chloride 97 mmol/L (98-107); Globulin 3.6 g/dL (2.4-3.5); Glucose 373 mg/dL (70-105); Potassium 5.2 mmol/L (3.5-5.1); Protein, Total 6.7 g/dL (6.0-8.3); Sodium 136 mmol/L (136-145)
[2021-09-11] MEDS: Vecuronium 10 MG VIAL IVP PRN ×6 (05:45→20:42)
[2021-09-11] MEDS: Lorazepam 2 MG/ML VIAL SLOW IVP PRN ×4 (07:08→16:07)
[2021-09-11 07:15] LABS: Actual Bicarbonate (HCO3a) 26.9 mEq/L (22-28); Base Excess (BEa) 0.1 mEq/L (-2.0 to +3.0); CO2 Tension 51.4 mmHg (35.0-45.0); Calcium, Ionized (arterial) 1.21 mmol/L (1.12-1.30); Carboxyhemoglobin (COHb) 0.5 gm% (0.0-3.0); Hemoglobin (Hb) 15.6 g/dL (14.0-18.0); Potassium - ABG Lab 5.12 mmol/L (3.70-5.30); pH, Arterial 7.34 (7.35-7.45)
[2021-09-11 07:16] LABS: Puncture Site RRA
[2021-09-11] MEDS: Mometasone 200 MCG/Formoterol 5 MCG 120 PUFF INHALER INH SCH ×2 (07:20→19:18)
[2021-09-11] MEDS ORDERED: Dextrose 5% in Water 1,000 ML IV PRN (07:37)
[2021-09-11] MEDS ORDERED: Dextrose 50% Abboject 50 ML SYRINGE SLOW IVP PRN (07:37)
[2021-09-11] MEDS: Cefepime 2 GM in Sodium Chloride 0.9% 100 ML IVPB SCH ×3 (07:39→23:39)
[2021-09-11] MEDS ORDERED: Sodium Chloride 3% 100 ML IVPB SCH ×2 (08:00→15:15)
[2021-09-11] MEDS: Enoxaparin Sodium 40 MG/0.4 ML SYRINGE SC SCH ×2 (08:42→20:41)
[2021-09-11] MEDS: Dexamethasone 10 MG/ML VIAL SLOW IVP SCH ×2 (08:42→20:41)
[2021-09-11] MEDS ORDERED: Furosemide 40 MG/4 ML VIAL SLOW IVP SCH ×2 (09:00→15:15)
[2021-09-11] MEDS: NPH, Human Insulin Isophane 300 UNIT/3 ML VIAL SC SCH ×2 (09:34→21:13)
[2021-09-11 09:40] LABS: Vancomycin, Random 5.9 ug/mL (See Comment)
[2021-09-11] MEDS: fentaNYL Citrate-0.9 % NaCl/PF 100 ML IV SCH (09:42)
[2021-09-11] MEDS ORDERED: Sodium Chloride 0.9% (PF) 10 ML VIAL FS PRN (10:00)
[2021-09-11] MEDS: HumaLOG 300 UNITS/3 ML VIAL SC PRN ×3 (10:09→21:14)
[2021-09-11] MEDS: Pantoprazole 40 MG VIAL IVP SCH (10:14)
[2021-09-11] MEDS: Micafungin 100 MG in Sodium Chloride 0.9% 100 ML IVPB SCH (10:30)
[2021-09-11] MEDS: VANCOMYCIN 1.25 GM/250 ML BAG 1.25 GM in Premix Bag 1 BAG IVPB SCH ×2 (11:32→20:42)
[2021-09-11] MEDS: Dexmedetomidine 1,000 MCG in Sodium Chloride 0.9% 250 ML 240 ML IVPB SCH ×2 (11:56→18:20)
[2021-09-11] MEDS ORDERED: hydrALAZINE 20 MG/ML VIAL SLOW IVP PRN (18:54)
[2021-09-11] MEDS ORDERED: Amlodipine 5 MG TAB PER TUBE SCH (19:00)
[2021-09-11] MEDS: BARICITINIB 2 MG TAB PO SCH (20:42)
[2021-09-11] MEDS: Acetaminophen 650 MG Suppository PR PRN (20:47)
[2021-09-12] MEDS: Propofol 1,000 MG/100 ML VIAL IV PRN ×6 (02:27→20:44)
[2021-09-12] MEDS: HumaLOG 300 UNITS/3 ML VIAL SC PRN ×4 (04:27→22:01)
[2021-09-12] MEDS: VANCOMYCIN 1.25 GM/250 ML BAG 1.25 GM in Premix Bag 1 BAG IVPB SCH ×2 (04:28→20:19)
[2021-09-12] MEDS: Dexmedetomidine 1,000 MCG in Sodium Chloride 0.9% 250 ML 240 ML IVPB SCH ×2 (04:29→16:38)
[2021-09-12] MEDS: fentaNYL Citrate-0.9 % NaCl/PF 100 ML IV SCH (05:34)
[2021-09-12] MEDS: Mometasone 200 MCG/Formoterol 5 MCG 120 PUFF INHALER INH SCH ×2 (06:54→18:37)
[2021-09-12 07:03] LABS: Actual Bicarbonate (HCO3a) 24.9 mEq/L (22-28); Base Excess (BEa) 0.9 mEq/L (-2.0 to +3.0); Carboxyhemoglobin (COHb) 0.6 gm% (0.0-3.0); Hemoglobin (Hb) 16.2 g/dL (14.0-18.0); Potassium - ABG Lab 4.48 mmol/L (3.70-5.30); pH, Arterial 7.43 (7.35-7.45)
[2021-09-12 07:04] LABS: O2 Tension (PaO2), arterial 58.4 mmHg (80.0-100.0)
[2021-09-12 07:05] LABS: Puncture Site RRA
[2021-09-12] MEDS: Cefepime 2 GM in Sodium Chloride 0.9% 100 ML IVPB SCH ×2 (08:06→16:30)
[2021-09-12] MEDS: Vecuronium 10 MG VIAL IVP PRN (08:37)
[2021-09-12] MEDS: Enoxaparin Sodium 40 MG/0.4 ML SYRINGE SC SCH ×2 (08:37→20:44)
[2021-09-12] MEDS: Lorazepam 2 MG/ML VIAL SLOW IVP PRN ×3 (08:37→16:30)
[2021-09-12] MEDS: Dexamethasone 10 MG/ML VIAL SLOW IVP SCH ×2 (08:38→20:44)
[2021-09-12] MEDS: Pantoprazole 40 MG VIAL IVP SCH (08:38)
[2021-09-12] MEDS: Amlodipine 5 MG TAB PER TUBE SCH (09:47)
[2021-09-12] MEDS: NPH, Human Insulin Isophane 300 UNIT/3 ML VIAL SC SCH ×2 (09:49→20:45)
[2021-09-12] MEDS ORDERED: Sodium Chloride 3% 100 ML IVPB SCH (10:15)
[2021-09-12 10:25] LABS: ALT (SGPT) 17 U/L (8-55); AST (SGOT) 14 U/L (5-34); Albumin 2.9 g/dL (3.5-5.0); Alkaline Phosphatase 67 U/L (40-110); Anion Gap 19 mmol/L (10-20); BUN (Urea Nitrogen) 48 mg/dL (8.9-20.6); Bilirubin, Total 0.7 mg/dL (0.2-1.2); Calc. Creatinine Clearance 107 mL/min (70-130); Calcium 9.1 mg/dL (7.8-10.44); Carbon Dioxide 18 mmol/L (22-29); Chloride 103 mmol/L (98-107); Globulin 3.6 g/dL (2.4-3.5); Glucose 330 mg/dL (70-105); Potassium 4.7 mmol/L (3.5-5.1); Protein, Total 6.5 g/dL (6.0-8.3); Sodium 135 mmol/L (136-145)
[2021-09-12 10:31] LABS: #Monocytes 0.6 thou/uL (0.11-0.59); #Neutrophils 13.7 thou/uL (1.40-6.50); %Basophils 0.1 % (0.0-1.0); %Eosinophils 0.3 % (0.0-10.0); %Lymphocytes 6.7 % (21.0-51.0); %Monocytes 3.6 % (0.0-10.0); %Neutrophils 89.3 % (42.0-75.0); Band 2 % (5-11); Hemoglobin 15.7 g/dL (14.0-18.0); Lymphocytes 9 % (21-51); MDiff Complete? YES; Mean Corpuscular HGB CONC 31.3 g/dL (32.0-36.0); Mean Corpuscular Hemoglobin 30.7 pg (27.0-31.0); Monocytes 3 % (0-10); Neutrophil 86 % (42-75); Platelet Count 190 thou/uL (130-400); Platelet Morphology Comment Appears Adequate; RBC Distribution Width 13.1 % (11.5-14.5); RBC Morphology Normal; White Blood Cell (WBC) Count 15.3 thou/uL (4.8-10.8)
[2021-09-12] MEDS: Micafungin 100 MG in Sodium Chloride 0.9% 100 ML IVPB SCH (11:14)
[2021-09-12 11:45] LABS: Vancomycin, Trough 27.7 ug/mL
[2021-09-12] MEDS ORDERED: Furosemide 40 MG/4 ML VIAL SLOW IVP SCH (12:00)
[2021-09-12] MEDS ORDERED: Furosemide 40 MG/4 ML VIAL ONE (12:00)
[2021-09-12] MEDS: Vancomycin HCl 750 MG in Sodium Chloride 0.9% 250 ML 250 ML IVPB SCH (20:43)
[2021-09-12] MEDS ORDERED: BARICITINIB 2 MG TAB PO SCH (21:00)
[2021-09-12] MEDS: Acetaminophen 650 MG Suppository PR PRN (23:28)
[2021-09-13] MEDS: Cefepime 2 GM in Sodium Chloride 0.9% 100 ML IVPB SCH ×3 (00:22→15:47)
[2021-09-13] MEDS: fentaNYL Citrate-0.9 % NaCl/PF 100 ML IV SCH ×2 (00:57→22:32)
[2021-09-13] MEDS: Propofol 1,000 MG/100 ML VIAL IV PRN ×7 (00:57→20:10)
[2021-09-13] MEDS: Dexmedetomidine 1,000 MCG in Sodium Chloride 0.9% 250 ML 240 ML IVPB SCH ×2 (00:57→15:47)
[2021-09-13] MEDS: Vancomycin HCl 750 MG in Sodium Chloride 0.9% 250 ML 250 ML IVPB SCH ×2 (04:09→12:17)
[2021-09-13] MEDS: HumaLOG 300 UNITS/3 ML VIAL SC PRN ×4 (05:55→22:33)
[2021-09-13] MEDS: Mometasone 200 MCG/Formoterol 5 MCG 120 PUFF INHALER INH SCH ×2 (07:04→18:23)
[2021-09-13 07:06] LABS: Base Excess (BEa) 2.8 mEq/L (-2.0 to +3.0); CO2 Tension 35.4 mmHg (35.0-45.0); Calcium, Ionized (arterial) 1.19 mmol/L (1.12-1.30); Carboxyhemoglobin (COHb) 1.2 gm% (0.0-3.0); Hemoglobin (Hb) 15.7 g/dL (14.0-18.0); Potassium - ABG Lab 4.13 mmol/L (3.70-5.30); pH, Arterial 7.48 (7.35-7.45)
[2021-09-13 07:07] LABS: O2 Tension (PaO2), arterial 49.9 mmHg (80.0-100.0)
[2021-09-13 07:08] LABS: Puncture Site LRA
[2021-09-13 07:24] LABS: Hemoglobin 15.3 g/dL (14.0-18.0); Mean Corpuscular HGB CONC 31.1 g/dL (32.0-36.0); Mean Corpuscular Hemoglobin 30.1 pg (27.0-31.0); Mean Corpuscular Volume 96.9 fL (78.0-98.0); Mean Platelet Volume 7.9 fL (7.4-10.4); Platelet Count 164 thou/uL (130-400); RBC Distribution Width 13.2 % (11.5-14.5); Red Blood Cell (RBC) Count 5.07 mill/uL (4.70-6.10); White Blood Cell (WBC) Count 10.6 thou/uL (4.8-10.8)
[2021-09-13 07:40] LABS: Anion Gap 17 mmol/L (10-20); BUN (Urea Nitrogen) 47 mg/dL (8.9-20.6); Calc. Creatinine Clearance 142 mL/min (70-130); Calcium 8.9 mg/dL (7.8-10.44); Carbon Dioxide 21 mmol/L (22-29); Chloride 105 mmol/L (98-107); Glucose 341 mg/dL (70-105); Potassium 4.8 mmol/L (3.5-5.1); Sodium 138 mmol/L (136-145)
[2021-09-13 08:59] LABS: Lymphocytes 10 % (21-51); MDiff Complete? YES; Monocytes 6 % (0-10); Neutrophil 84 % (42-75); RBC Morphology Normal
[2021-09-13] MEDS: Enoxaparin Sodium 40 MG/0.4 ML SYRINGE SC SCH ×2 (09:03→20:10)
[2021-09-13] MEDS: Dexamethasone 10 MG/ML VIAL SLOW IVP SCH ×2 (09:05→20:10)
[2021-09-13] MEDS: Pantoprazole 40 MG VIAL IVP SCH (09:05)
[2021-09-13] MEDS: Amlodipine 5 MG TAB PER TUBE SCH (09:06)
[2021-09-13] MEDS: NPH, Human Insulin Isophane 300 UNIT/3 ML VIAL SC SCH ×2 (10:14→20:11)
[2021-09-13] MEDS: Micafungin 100 MG in Sodium Chloride 0.9% 100 ML IVPB SCH (10:33)
[2021-09-13 19:33] LABS: Vancomycin, Trough 13.6 ug/mL
[2021-09-13] MEDS: Vancomycin 1 GM in Premix Bag 1 BAG IVPB SCH (20:09)
[2021-09-13] MEDS: BARICITINIB 2 MG TAB PO SCH (20:10)
[2021-09-14] MEDS: Cefepime 2 GM in Sodium Chloride 0.9% 100 ML IVPB SCH ×4 (00:01→23:32)
[2021-09-14] MEDS: Dexmedetomidine 1,000 MCG in Sodium Chloride 0.9% 250 ML 240 ML IVPB SCH ×2 (02:11→12:59)
[2021-09-14] MEDS: Propofol 1,000 MG/100 ML VIAL IV PRN ×6 (02:12→19:58)
[2021-09-14] MEDS: Vancomycin 1 GM in Premix Bag 1 BAG IVPB SCH ×3 (03:37→19:57)
[2021-09-14 03:57] LABS: #Lymphocytes 0.6 thou/uL (1.20-3.40); #Monocytes 0.3 thou/uL (0.11-0.59); #Neutrophils 8.1 thou/uL (1.40-6.50); %Basophils 0.1 % (0.0-1.0); %Eosinophils 0.3 % (0.0-10.0); %Lymphocytes 6.5 % (21.0-51.0); %Monocytes 3.3 % (0.0-10.0); %Neutrophils 89.9 % (42.0-75.0); Hemoglobin 15.7 g/dL (14.0-18.0); Mean Corpuscular HGB CONC 32.2 g/dL (32.0-36.0); Mean Corpuscular Hemoglobin 31.6 pg (27.0-31.0); Mean Corpuscular Volume 98.1 fL (78.0-98.0); Mean Platelet Volume 7.5 fL (7.4-10.4); Platelet Count 160 thou/uL (130-400); Red Blood Cell (RBC) Count 4.97 mill/uL (4.70-6.10)
[2021-09-14 04:22] LABS: ALT (SGPT) 18 U/L (8-55); AST (SGOT) 13 U/L (5-34); Albumin 3.1 g/dL (3.5-5.0); Alkaline Phosphatase 57 U/L (40-110); Anion Gap 12 mmol/L (10-20); BUN (Urea Nitrogen) 35 mg/dL (8.9-20.6); Bilirubin, Direct 0.3 mg/dL (0.1-0.3); Bilirubin, Total 0.6 mg/dL (0.2-1.2); Calc. Creatinine Clearance 198 mL/min (70-130); Calcium 8.8 mg/dL (7.8-10.44); Carbon Dioxide 25 mmol/L (22-29); Chloride 103 mmol/L (98-107); Glucose 307 mg/dL (70-105); Potassium 4.4 mmol/L (3.5-5.1); Protein, Total 6.4 g/dL (6.0-8.3); Sodium 136 mmol/L (136-145)
[2021-09-14] MEDS: HumaLOG 300 UNITS/3 ML VIAL SC PRN ×4 (04:40→21:56)
[2021-09-14] MEDS: Mometasone 200 MCG/Formoterol 5 MCG 120 PUFF INHALER INH SCH ×2 (06:45→18:18)
[2021-09-14 06:55] LABS: Actual Bicarbonate (HCO3a) 28.1 mEq/L (22-28); Base Excess (BEa) 3.5 mEq/L (-2.0 to +3.0); CO2 Tension 42.4 mmHg (35.0-45.0); Carboxyhemoglobin (COHb) 1.3 gm% (0.0-3.0); Hemoglobin (Hb) 16.2 g/dL (14.0-18.0); pH, Arterial 7.44 (7.35-7.45)
[2021-09-14 06:56] LABS: Potassium - ABG Lab 4.37 mmol/L (3.70-5.30)
[2021-09-14 06:59] LABS: O2 Tension (PaO2), arterial 45.1 mmHg (80.0-100.0); Puncture Site RRA
[2021-09-14] MEDS: Enoxaparin Sodium 40 MG/0.4 ML SYRINGE SC SCH ×2 (09:51→20:28)
[2021-09-14] MEDS: Dexamethasone 10 MG/ML VIAL SLOW IVP SCH ×2 (09:52→20:28)
[2021-09-14] MEDS: Pantoprazole 40 MG VIAL IVP SCH (09:52)
[2021-09-14] MEDS: Amlodipine 5 MG TAB PER TUBE SCH (09:55)
[2021-09-14] MEDS: NPH, Human Insulin Isophane 300 UNIT/3 ML VIAL SC SCH ×2 (09:59→20:29)
[2021-09-14] MEDS: Micafungin 100 MG in Sodium Chloride 0.9% 100 ML IVPB SCH (11:30)
[2021-09-14] MEDS: fentaNYL Citrate-0.9 % NaCl/PF 100 ML IV SCH (19:09)
[2021-09-14 19:32] LABS: Vancomycin, Trough 16.8 ug/mL
[2021-09-14] MEDS: BARICITINIB 2 MG TAB PO SCH (20:28)
[2021-09-15] MEDS: Propofol 1,000 MG/100 ML VIAL IV PRN ×7 (00:09→20:56)
[2021-09-15] MEDS: Dexmedetomidine 1,000 MCG in Sodium Chloride 0.9% 250 ML 240 ML IVPB SCH ×3 (00:09→22:02)
[2021-09-15] MEDS: Vancomycin 1 GM in Premix Bag 1 BAG IVPB SCH ×3 (03:43→19:40)
[2021-09-15] MEDS: HumaLOG 300 UNITS/3 ML VIAL SC PRN ×4 (04:23→22:20)
[2021-09-15] MEDS: Lorazepam 2 MG/ML VIAL SLOW IVP PRN ×3 (06:05→19:45)
[2021-09-15] MEDS: Mometasone 200 MCG/Formoterol 5 MCG 120 PUFF INHALER INH SCH ×2 (06:42→18:52)
[2021-09-15 06:43] LABS: Anion Gap 17 mmol/L (10-20); BUN (Urea Nitrogen) 27 mg/dL (8.9-20.6); Calc. Creatinine Clearance 213 mL/min (70-130); Calcium 9.1 mg/dL (7.8-10.44); Carbon Dioxide 20 mmol/L (22-29); Chloride 102 mmol/L (98-107); Glucose 291 mg/dL (70-105); Potassium 4.7 mmol/L (3.5-5.1); Sodium 134 mmol/L (136-145)
[2021-09-15 07:05] LABS: Actual Bicarbonate (HCO3a) 22.6 mEq/L (22-28); Base Excess (BEa) -1.6 mEq/L (-2.0 to +3.0); CO2 Tension 36.9 mmHg (35.0-45.0); Calcium, Ionized (arterial) 1.19 mmol/L (1.12-1.30); Carboxyhemoglobin (COHb) 1.5 gm% (0.0-3.0); Hemoglobin (Hb) 16.4 g/dL (14.0-18.0); Potassium - ABG Lab 4.37 mmol/L (3.70-5.30); pH, Arterial 7.41 (7.35-7.45)
[2021-09-15 07:07] LABS: O2 Tension (PaO2), arterial 51.3 mmHg (80.0-100.0); Puncture Site RRA
[2021-09-15 07:08] LABS: ALV-art Gradient 223.425 mmHg (0-20)
[2021-09-15] MEDS: Cefepime 2 GM in Sodium Chloride 0.9% 100 ML IVPB SCH ×2 (08:53→16:01)
[2021-09-15] MEDS: Amlodipine 5 MG TAB PER TUBE SCH (08:54)
[2021-09-15] MEDS: Enoxaparin Sodium 40 MG/0.4 ML SYRINGE SC SCH ×2 (08:54→20:08)
[2021-09-15] MEDS: Pantoprazole 40 MG VIAL IVP SCH (08:54)
[2021-09-15] MEDS: Dexamethasone 10 MG/ML VIAL SLOW IVP SCH ×2 (08:54→20:08)
[2021-09-15 09:27] LABS: Band 8 % (5-11); Hemoglobin 16.1 g/dL (14.0-18.0); Lymphocytes 6 % (21-51); MDiff Complete? YES; Mean Corpuscular HGB CONC 31.8 g/dL (32.0-36.0); Mean Corpuscular Hemoglobin 30.7 pg (27.0-31.0); Mean Corpuscular Volume 96.8 fL (78.0-98.0); Mean Platelet Volume 8.1 fL (7.4-10.4); Monocytes 1 % (0-10); Neutrophil 81 % (42-75); Platelet Count 124 thou/uL (130-400); Platelet Morphology Comment Appears Decreased; RBC Distribution Width 12.9 % (11.5-14.5); Reactive Lymphocytes 4 % (0-10); Red Blood Cell (RBC) Count 5.23 mill/uL (4.70-6.10); Stomatocytes SLIGHT = 2-5 cells (100X) (0-1/hpf); Target Cells SLIGHT = 2-5 cells (100X) (0-1/hpf); White Blood Cell (WBC) Count 10.3 thou/uL (4.8-10.8)
[2021-09-15] MEDS: NPH, Human Insulin Isophane 300 UNIT/3 ML VIAL SC SCH ×2 (10:10→20:08)
[2021-09-15] MEDS: Micafungin 100 MG in Sodium Chloride 0.9% 100 ML IVPB SCH (11:08)
[2021-09-15] MEDS: fentaNYL Citrate-0.9 % NaCl/PF 100 ML IV SCH (17:30)
[2021-09-15] MEDS: Polyethylene Glycol 3350 17 GM Packet PER TUBE SCH (20:08)
[2021-09-15] MEDS: Bisacodyl 10 MG SUPP PR SCH (20:08)
[2021-09-15] MEDS: BARICITINIB 2 MG TAB PO SCH (20:47)
[2021-09-16] MEDS: Propofol 1,000 MG/100 ML VIAL IV PRN ×6 (02:02→23:17)
[2021-09-16 04:12] LABS: #Lymphocytes 0.7 thou/uL (1.20-3.40); #Monocytes 0.3 thou/uL (0.11-0.59); #Neutrophils 9.8 thou/uL (1.40-6.50); %Basophils 0.1 % (0.0-1.0); %Eosinophils 0.3 % (0.0-10.0); %Lymphocytes 6.7 % (21.0-51.0); %Monocytes 2.9 % (0.0-10.0); %Neutrophils 89.9 % (42.0-75.0); Hemoglobin 16.6 g/dL (14.0-18.0); Mean Corpuscular HGB CONC 31.4 g/dL (32.0-36.0); Mean Corpuscular Hemoglobin 30.6 pg (27.0-31.0); Mean Corpuscular Volume 97.7 fL (78.0-98.0); Mean Platelet Volume 9.3 fL (7.4-10.4); Platelet Count 117 thou/uL (130-400); Red Blood Cell (RBC) Count 5.41 mill/uL (4.70-6.10); White Blood Cell (WBC) Count 10.9 thou/uL (4.8-10.8)
[2021-09-16] MEDS: Vancomycin 1 GM in Premix Bag 1 BAG IVPB SCH ×3 (04:14→19:49)
[2021-09-16 04:39] LABS: CRP (Inflammatory) Less than 0.50 mg/dL (= or < 0.5); Phosphorus 3.5 mg/dL (2.3-4.7)
[2021-09-16 04:40] LABS: Anion Gap 17 mmol/L (10-20); BUN (Urea Nitrogen) 25 mg/dL (8.9-20.6); Calc. Creatinine Clearance 186 mL/min (70-130); Calcium 9.5 mg/dL (7.8-10.44); Carbon Dioxide 24 mmol/L (22-29); Chloride 99 mmol/L (98-107); Glucose 271 mg/dL (70-105); Magnesium 1.5 mg/dL (1.6-2.6); Sodium 135 mmol/L (136-145)
[2021-09-16] MEDS: Mometasone 200 MCG/Formoterol 5 MCG 120 PUFF INHALER INH SCH ×2 (07:03→19:17)
[2021-09-16 07:37] LABS: Actual Bicarbonate (HCO3a) 27.6 mEq/L (22-28); Base Excess (BEa) 1.9 mEq/L (-2.0 to +3.0); CO2 Tension 46.2 mmHg (35.0-45.0); Carboxyhemoglobin (COHb) 1.6 gm% (0.0-3.0); Hemoglobin (Hb) 18.1 g/dL (14.0-18.0); Potassium - ABG Lab 4.24 mmol/L (3.70-5.30); pH, Arterial 7.39 (7.35-7.45)
[2021-09-16 07:40] LABS: O2 Tension (PaO2), arterial 56.2 mmHg (80.0-100.0); Puncture Site RRA
[2021-09-16] MEDS: Cefepime 2 GM in Sodium Chloride 0.9% 100 ML IVPB SCH ×3 (08:53→17:00)
[2021-09-16] MEDS: Dexmedetomidine 1,000 MCG in Sodium Chloride 0.9% 250 ML 240 ML IVPB SCH ×2 (08:53→18:51)
[2021-09-16] MEDS: Pantoprazole 40 MG VIAL IVP SCH (08:54)
[2021-09-16] MEDS: Dexamethasone 10 MG/ML VIAL SLOW IVP SCH ×2 (08:54→21:42)
[2021-09-16] MEDS: Amlodipine 5 MG TAB PER TUBE SCH (08:54)
[2021-09-16] MEDS: Enoxaparin Sodium 40 MG/0.4 ML SYRINGE SC SCH ×2 (08:54→21:42)
[2021-09-16] MEDS: Lorazepam 2 MG/ML VIAL SLOW IVP PRN (09:01)
[2021-09-16] MEDS ORDERED: Magnesium Sulfate 4 GM in Sodium Chloride 0.9% 250 ML 250 ML IVPB SCH (09:30)
[2021-09-16] MEDS: HumaLOG 300 UNITS/3 ML VIAL SC PRN ×2 (09:54→16:05)
[2021-09-16] MEDS: NPH, Human Insulin Isophane 300 UNIT/3 ML VIAL SC SCH ×3 (09:54→21:49)
[2021-09-16] MEDS: Micafungin 100 MG in Sodium Chloride 0.9% 100 ML IVPB SCH (11:12)
[2021-09-16 12:08] LABS: Vancomycin, Trough 13.4 ug/mL
[2021-09-16] MEDS: fentaNYL Citrate-0.9 % NaCl/PF 100 ML IV SCH (12:36)
[2021-09-16] MEDS: BARICITINIB 2 MG TAB PO SCH (21:41)
[2021-09-16] MEDS: Bisacodyl 10 MG SUPP PR SCH (21:42)
[2021-09-16] MEDS: Polyethylene Glycol 3350 17 GM Packet PER TUBE SCH (21:42)
[2021-09-16] MEDS ORDERED: Electrolyte Replacement Protocol 1 EACH FS SCH (23:30)
[2021-09-17] MEDS: Cefepime 2 GM in Sodium Chloride 0.9% 100 ML IVPB SCH ×2 (00:01→08:36)
[2021-09-17] MEDS: Vancomycin 1 GM in Premix Bag 1 BAG IVPB SCH (03:25)
[2021-09-17] MEDS: Propofol 1,000 MG/100 ML VIAL IV PRN ×6 (03:26→21:40)
[2021-09-17] MEDS: Dexmedetomidine 1,000 MCG in Sodium Chloride 0.9% 250 ML 240 ML IVPB SCH ×2 (04:02→14:48)
[2021-09-17] MEDS: HumaLOG 300 UNITS/3 ML VIAL SC PRN ×3 (05:12→16:35)
[2021-09-17 05:30] LABS: #Lymphocytes 0.7 thou/uL (1.20-3.40); #Monocytes 0.3 thou/uL (0.11-0.59); #Neutrophils 8.3 thou/uL (1.40-6.50); %Basophils 0.1 % (0.0-1.0); %Eosinophils 0.3 % (0.0-10.0); %Lymphocytes 7.1 % (21.0-51.0); %Monocytes 3.5 % (0.0-10.0); Hemoglobin 16.1 g/dL (14.0-18.0); Mean Corpuscular HGB CONC 31.6 g/dL (32.0-36.0); Mean Corpuscular Hemoglobin 30.7 pg (27.0-31.0); Mean Corpuscular Volume 97.3 fL (78.0-98.0); Mean Platelet Volume 8.7 fL (7.4-10.4); Platelet Count 149 thou/uL (130-400); RBC Distribution Width 12.9 % (11.5-14.5); Red Blood Cell (RBC) Count 5.24 mill/uL (4.70-6.10); White Blood Cell (WBC) Count 9.3 thou/uL (4.8-10.8)
[2021-09-17 05:57] LABS: Phosphorus 3.5 mg/dL (2.3-4.7)
[2021-09-17 06:00] LABS: ALT (SGPT) 19 U/L (8-55); AST (SGOT) 11 U/L (5-34); Albumin 3.1 g/dL (3.5-5.0); Alkaline Phosphatase 47 U/L (40-110); Anion Gap 17 mmol/L (10-20); BUN (Urea Nitrogen) 27 mg/dL (8.9-20.6); Bilirubin, Direct 0.3 mg/dL (0.1-0.3); Bilirubin, Total 0.6 mg/dL (0.2-1.2); Calc. Creatinine Clearance 220 mL/min (70-130); Calcium 8.8 mg/dL (7.8-10.44); Carbon Dioxide 22 mmol/L (22-29); Chloride 99 mmol/L (98-107); Glucose 331 mg/dL (70-105); Magnesium 1.7 mg/dL (1.6-2.6); Potassium 4.5 mmol/L (3.5-5.1); Protein, Total 6.1 g/dL (6.0-8.3); Sodium 133 mmol/L (136-145)
[2021-09-17] MEDS: Mometasone 200 MCG/Formoterol 5 MCG 120 PUFF INHALER INH SCH ×2 (06:41→18:56)
[2021-09-17] MEDS ORDERED: Magnesium 2 GM/50 ML 2 GM in Premix Bag 1 BAG IVPB SCH (07:00)
[2021-09-17 07:58] LABS: Base Excess (BEa) 2.3 mEq/L (-2.0 to +3.0); CO2 Tension 47.1 mmHg (35.0-45.0); Calcium, Ionized (arterial) 1.16 mmol/L (1.12-1.30); Carboxyhemoglobin (COHb) 1.4 gm% (0.0-3.0); Hemoglobin (Hb) 16.6 g/dL (14.0-18.0); Potassium - ABG Lab 4.38 mmol/L (3.70-5.30); pH, Arterial 7.39 (7.35-7.45)
[2021-09-17 08:12] LABS: O2 Tension (PaO2), arterial 56.6 mmHg (80.0-100.0)
[2021-09-17 08:13] LABS: ALV-art Gradient 169.725 mmHg (0-20); Puncture Site RRA
[2021-09-17] MEDS: Dexamethasone 10 MG/ML VIAL SLOW IVP SCH ×2 (09:02→20:35)
[2021-09-17] MEDS: Enoxaparin Sodium 40 MG/0.4 ML SYRINGE SC SCH ×2 (09:02→20:35)
[2021-09-17] MEDS: Amlodipine 5 MG TAB PER TUBE SCH (09:02)
[2021-09-17] MEDS: Pantoprazole 40 MG VIAL IVP SCH (09:02)
[2021-09-17] MEDS: NPH, Human Insulin Isophane 300 UNIT/3 ML VIAL SC SCH ×4 (10:04→21:52)
[2021-09-17] MEDS: fentaNYL Citrate-0.9 % NaCl/PF 100 ML IV SCH (10:04)
[2021-09-17] MEDS: Micafungin 100 MG in Sodium Chloride 0.9% 100 ML IVPB SCH (10:20)
[2021-09-17] MEDS: Lorazepam 2 MG/ML VIAL SLOW IVP PRN ×2 (13:20→21:40)
[2021-09-17] MEDS: BARICITINIB 2 MG TAB PO SCH (20:35)
[2021-09-17] MEDS: Bisacodyl 10 MG SUPP PR SCH (20:35)
[2021-09-17] MEDS: Polyethylene Glycol 3350 17 GM Packet PER TUBE SCH (20:37)
[2021-09-18] MEDS: Dexmedetomidine 1,000 MCG in Sodium Chloride 0.9% 250 ML 240 ML IVPB SCH ×3 (01:38→16:01)
[2021-09-18] MEDS: Propofol 1,000 MG/100 ML VIAL IV PRN ×6 (01:41→21:29)
[2021-09-18] MEDS: fentaNYL Citrate-0.9 % NaCl/PF 100 ML IV SCH (02:20)
[2021-09-18] MEDS: NPH, Human Insulin Isophane 300 UNIT/3 ML VIAL SC SCH ×3 (04:26→21:50)
[2021-09-18] MEDS: Mometasone 200 MCG/Formoterol 5 MCG 120 PUFF INHALER INH SCH ×2 (06:47→18:37)
[2021-09-18 07:50] LABS: Actual Bicarbonate (HCO3a) 25.2 mEq/L (22-28); Base Excess (BEa) 0.4 mEq/L (-2.0 to +3.0); CO2 Tension 41.1 mmHg (35.0-45.0); Carboxyhemoglobin (COHb) 1.3 gm% (0.0-3.0); Hemoglobin (Hb) 16.4 g/dL (14.0-18.0); Potassium - ABG Lab 4.56 mmol/L (3.70-5.30); pH, Arterial 7.41 (7.35-7.45)
[2021-09-18 07:56] LABS: ALV-art Gradient 174.625 mmHg (0-20); O2 Tension (PaO2), arterial 59.2 mmHg (80.0-100.0); Puncture Site RRA
[2021-09-18 08:16] LABS: Mean Corpuscular HGB CONC 32.3 g/dL (32.0-36.0); Mean Corpuscular Hemoglobin 31.1 pg (27.0-31.0); Mean Corpuscular Volume 96.4 fL (78.0-98.0); Mean Platelet Volume 8.8 fL (7.4-10.4); Platelet Count 180 thou/uL (130-400); Red Blood Cell (RBC) Count 5.15 mill/uL (4.70-6.10); White Blood Cell (WBC) Count 9.3 thou/uL (4.8-10.8)
[2021-09-18 08:21] LABS: Albumin 3.1 g/dL (3.5-5.0)
[2021-09-18 08:23] LABS: Chloride 101 mmol/L (98-107); Sodium 135 mmol/L (136-145)
[2021-09-18 08:24] LABS: Globulin 3.4 g/dL (2.4-3.5); Glucose 292 mg/dL (70-105); Protein, Total 6.5 g/dL (6.0-8.3)
[2021-09-18 08:25] LABS: Anion Gap 16 mmol/L (10-20); Carbon Dioxide 23 mmol/L (22-29)
[2021-09-18 08:26] LABS: Bilirubin, Total 0.6 mg/dL (0.2-1.2)
[2021-09-18 08:27] LABS: Alkaline Phosphatase 54 U/L (40-110); Calc. Creatinine Clearance 218 mL/min (70-130)
[2021-09-18 08:28] LABS: BUN (Urea Nitrogen) 25 mg/dL (8.9-20.6)
[2021-09-18 08:29] LABS: AST (SGOT) 16 U/L (5-34)
[2021-09-18 08:30] LABS: ALT (SGPT) 18 U/L (8-55); Magnesium 1.6 mg/dL (1.6-2.6)
[2021-09-18 08:46] LABS: Band 1 % (5-11); Lymphocytes 16 % (21-51); MDiff Complete? YES; Monocytes 3 % (0-10); Neutrophil 79 % (42-75); Platelet Morphology Comment Appears Adequate; RBC Morphology Normal; Reactive Lymphocytes 1 % (0-10)
[2021-09-18] MEDS: Dexamethasone 10 MG/ML VIAL SLOW IVP SCH ×2 (09:00→19:29)
[2021-09-18] MEDS ORDERED: Magnesium 2 GM/50 ML 2 GM in Premix Bag 1 BAG IVPB SCH (09:00)
[2021-09-18] MEDS: Enoxaparin Sodium 40 MG/0.4 ML SYRINGE SC SCH ×2 (09:00→19:29)
[2021-09-18] MEDS: Pantoprazole 40 MG VIAL IVP SCH (09:01)
[2021-09-18] MEDS: Amlodipine 5 MG TAB PER TUBE SCH (09:01)
[2021-09-18] MEDS: HumaLOG 300 UNITS/3 ML VIAL SC PRN ×3 (10:35→19:28)
[2021-09-18] MEDS: Micafungin 100 MG in Sodium Chloride 0.9% 100 ML IVPB SCH (12:00)
[2021-09-18] MEDS: Bisacodyl 10 MG SUPP PR SCH (19:29)
[2021-09-18] MEDS: BARICITINIB 2 MG TAB PO SCH (19:29)
[2021-09-18] MEDS: Polyethylene Glycol 3350 17 GM Packet PER TUBE SCH (19:31)
[2021-09-18] MEDS: fentaNYL Citrate/PF 2,000 MCG in Sodium Chloride 0.9% 60 ML IV SCH (21:49)
[2021-09-19] MEDS: Acetaminophen 650 MG/20.3 ML UDCUP PO PRN ×2 (00:44→13:43)
[2021-09-19] MEDS: Dexmedetomidine 1,000 MCG in Sodium Chloride 0.9% 250 ML 240 ML IVPB SCH ×2 (01:14→17:34)
[2021-09-19] MEDS: Propofol 1,000 MG/100 ML VIAL IV PRN ×6 (01:17→21:20)
[2021-09-19] MEDS: NPH, Human Insulin Isophane 300 UNIT/3 ML VIAL SC SCH ×4 (03:24→22:09)
[2021-09-19] MEDS: HumaLOG 300 UNITS/3 ML VIAL SC PRN ×3 (03:26→18:20)
[2021-09-19 04:33] LABS: ALT (SGPT) 22 U/L (8-55); AST (SGOT) 26 U/L (5-34); Albumin 3.2 g/dL (3.5-5.0); Alkaline Phosphatase 46 U/L (40-110); Anion Gap 21 mmol/L (10-20); BUN (Urea Nitrogen) 36 mg/dL (8.9-20.6); Bilirubin, Total 0.5 mg/dL (0.2-1.2); Calc. Creatinine Clearance 205 mL/min (70-130); Carbon Dioxide 19 mmol/L (22-29); Chloride 101 mmol/L (98-107); Globulin 3.7 g/dL (2.4-3.5); Glucose 258 mg/dL (70-105); Magnesium 1.8 mg/dL (1.6-2.6); Potassium 5.1 mmol/L (3.5-5.1); Protein, Total 6.9 g/dL (6.0-8.3); Sodium 136 mmol/L (136-145)
[2021-09-19 05:04] LABS: Actual Bicarbonate (HCO3a) 25.9 mEq/L (22-28); Base Excess (BEa) 0.6 mEq/L (-2.0 to +3.0); CO2 Tension 43.7 mmHg (35.0-45.0); Calcium, Ionized (arterial) 1.22 mmol/L (1.12-1.30); Carboxyhemoglobin (COHb) 0.5 gm% (0.0-3.0); Hemoglobin (Hb) 17.2 g/dL (14.0-18.0); pH, Arterial 7.39 (7.35-7.45)
[2021-09-19 05:05] LABS: O2 Tension (PaO2), arterial 56.9 mmHg (80.0-100.0); Puncture Site LRA
[2021-09-19 05:06] LABS: ALV-art Gradient 173.675 mmHg (0-20)
[2021-09-19 05:37] LABS: #Eosinphils 0.1 thou/uL (0.0-0.7); #Lymphocytes 0.8 thou/uL (1.20-3.40); #Monocytes 1.1 thou/uL (0.11-0.59); %Basophils 0.2 % (0.0-1.0); %Eosinophils 0.4 % (0.0-10.0); %Lymphocytes 5.4 % (21.0-51.0); %Monocytes 7.3 % (0.0-10.0); %Neutrophils 86.7 % (42.0-75.0); Elliptocytes SLIGHT = 2-5 cells (100X) (0-1/hpf); Hemoglobin 16.7 g/dL (14.0-18.0); Lymphocytes 4 % (21-51); MDiff Complete? YES; Mean Corpuscular HGB CONC 30.7 g/dL (32.0-36.0); Mean Corpuscular Volume 97.9 fL (78.0-98.0); Mean Platelet Volume 6.7 fL (7.4-10.4); Monocytes 5 % (0-10); Neutrophil 91 % (42-75); Platelet Count 81 thou/uL (130-400); Platelet Morphology Comment Appears Decreased; Polychromasia SLIGHT = 2-3 cells (100X) (0-2/hpf); Red Blood Cell (RBC) Count 5.55 mill/uL (4.70-6.10); Target Cells SLIGHT = 2-5 cells (100X) (0-1/hpf); Tear Drops SLIGHT = 2-5 cells (100X) (0-1/hpf); White Blood Cell (WBC) Count 14.9 thou/uL (4.8-10.8)
[2021-09-19] MEDS: Mometasone 200 MCG/Formoterol 5 MCG 120 PUFF INHALER INH SCH ×2 (06:37→19:13)
[2021-09-19] MEDS ORDERED: Magnesium 2 GM/50 ML 2 GM in Premix Bag 1 BAG IVPB SCH (07:00)
[2021-09-19] MEDS ORDERED: VANCOMYCIN IVPB PRN (08:14)
[2021-09-19] MEDS ORDERED: Meropenem 1 GM in Sodium Chloride 0.9% 100 ML IVPB SCH ×2 (08:30→14:00)
[2021-09-19] MEDS: Enoxaparin Sodium 40 MG/0.4 ML SYRINGE SC SCH ×2 (08:38→21:28)
[2021-09-19] MEDS: Pantoprazole 40 MG VIAL IVP SCH (08:39)
[2021-09-19] MEDS: Dexamethasone 10 MG/ML VIAL SLOW IVP SCH ×2 (08:41→21:28)
[2021-09-19] MEDS: Amlodipine 5 MG TAB PER TUBE SCH (08:41)
[2021-09-19] MEDS: Vancomycin 1.5 GRAM/300 ML BAG 1.5 GM in Premix Bag 1 BAG IVPB SCH ×2 (08:54→19:46)
[2021-09-19] MEDS: Micafungin 100 MG in Sodium Chloride 0.9% 100 ML IVPB SCH (11:02)
[2021-09-19] MEDS: Meropenem 1 GM in Sodium Chloride 0.9% 100 ML IVPB SCH ×2 (13:42→22:08)
[2021-09-19] MEDS: fentaNYL Citrate/PF 2,000 MCG in Sodium Chloride 0.9% 60 ML IV SCH (19:15)
[2021-09-19] MEDS: BARICITINIB 2 MG TAB PO SCH (21:27)
[2021-09-19] MEDS: Polyethylene Glycol 3350 17 GM Packet PER TUBE SCH (21:27)
[2021-09-19] MEDS: Bisacodyl 10 MG SUPP PR SCH (21:27)
[2021-09-20] MEDS: Vancomycin 1.5 GRAM/300 ML BAG 1.5 GM in Premix Bag 1 BAG IVPB SCH ×4 (00:03→16:52)
[2021-09-20] MEDS: Propofol 1,000 MG/100 ML VIAL IV PRN ×6 (00:58→20:38)
[2021-09-20] MEDS: HumaLOG 300 UNITS/3 ML VIAL SC PRN ×4 (04:16→21:33)
[2021-09-20] MEDS: NPH, Human Insulin Isophane 300 UNIT/3 ML VIAL SC SCH ×3 (05:05→21:32)
[2021-09-20] MEDS: Meropenem 1 GM in Sodium Chloride 0.9% 100 ML IVPB SCH ×3 (05:11→21:19)
[2021-09-20] MEDS: Mometasone 200 MCG/Formoterol 5 MCG 120 PUFF INHALER INH SCH ×2 (06:50→18:15)
[2021-09-20] MEDS: Dexmedetomidine 1,000 MCG in Sodium Chloride 0.9% 250 ML 240 ML IVPB SCH (07:57)
[2021-09-20 08:18] LABS: Actual Bicarbonate (HCO3a) 24.5 mEq/L (22-28); Base Excess (BEa) -1.3 mEq/L (-2.0 to +3.0); Calcium, Ionized (arterial) 1.21 mmol/L (1.12-1.30); Carboxyhemoglobin (COHb) 1.2 gm% (0.0-3.0); Hemoglobin (Hb) 16.3 g/dL (14.0-18.0); O2 Tension (PaO2), arterial 62.6 mmHg (80.0-100.0); Puncture Site RRA; pH, Arterial 7.35 (7.35-7.45)
[2021-09-20] MEDS: Dexamethasone 10 MG/ML VIAL SLOW IVP SCH (08:43)
[2021-09-20] MEDS: Enoxaparin Sodium 40 MG/0.4 ML SYRINGE SC SCH ×2 (08:43→21:19)
[2021-09-20] MEDS: Amlodipine 5 MG TAB PER TUBE SCH (08:43)
[2021-09-20] MEDS: Pantoprazole 40 MG VIAL IVP SCH (08:44)
[2021-09-20] MEDS ORDERED: Metamucil PACK PER TUBE SCH (09:00)
[2021-09-20] MEDS: Micafungin 100 MG in Sodium Chloride 0.9% 100 ML IVPB SCH (11:02)
[2021-09-20 11:58] LABS: #Eosinphils 0.1 thou/uL (0.0-0.7); #Lymphocytes 0.5 thou/uL (1.20-3.40); #Monocytes 0.9 thou/uL (0.11-0.59); %Eosinophils 0.4 % (0.0-10.0); %Monocytes 6.9 % (0.0-10.0); %Neutrophils 88.6 % (42.0-75.0); Hemoglobin 15.4 g/dL (14.0-18.0); Mean Corpuscular HGB CONC 31.5 g/dL (32.0-36.0); Mean Corpuscular Hemoglobin 30.8 pg (27.0-31.0); Mean Corpuscular Volume 97.7 fL (78.0-98.0); Mean Platelet Volume 8.5 fL (7.4-10.4); Platelet Count 266 thou/uL (130-400); RBC Distribution Width 13.2 % (11.5-14.5); White Blood Cell (WBC) Count 12.4 thou/uL (4.8-10.8)
[2021-09-20 12:22] LABS: ALT (SGPT) 24 U/L (8-55); AST (SGOT) 13 U/L (5-34); Albumin 3.2 g/dL (3.5-5.0); Alkaline Phosphatase 44 U/L (40-110); Anion Gap 16 mmol/L (10-20); BUN (Urea Nitrogen) 35 mg/dL (8.9-20.6); Bilirubin, Total 0.6 mg/dL (0.2-1.2); Calc. Creatinine Clearance 223 mL/min (70-130); Calcium 8.9 mg/dL (7.8-10.44); Carbon Dioxide 22 mmol/L (22-29); Chloride 105 mmol/L (98-107); Globulin 2.8 g/dL (2.4-3.5); Glucose 278 mg/dL (70-105); Magnesium 1.9 mg/dL (1.6-2.6); Sodium 139 mmol/L (136-145)
[2021-09-20] MEDS ORDERED: Magnesium 2 GM/50 ML 2 GM in Premix Bag 1 BAG IVPB SCH (12:30)
[2021-09-20] MEDS: fentaNYL Citrate/PF 2,000 MCG in Sodium Chloride 0.9% 60 ML IV SCH (15:20)
[2021-09-20 16:22] LABS: Vancomycin, Trough 18.9 ug/mL
[2021-09-20] MEDS: BARICITINIB 2 MG TAB PO SCH (21:19)
[2021-09-20] MEDS: Bisacodyl 10 MG SUPP PR SCH (21:20)
[2021-09-20] MEDS: Polyethylene Glycol 3350 17 GM Packet PER TUBE SCH (21:35)
[2021-09-21] MEDS: Propofol 1,000 MG/100 ML VIAL IV PRN ×3 (00:12→07:54)
[2021-09-21] MEDS: Dexmedetomidine 1,000 MCG in Sodium Chloride 0.9% 250 ML 240 ML IVPB SCH ×2 (00:13→15:24)
[2021-09-21] MEDS: Meropenem 1 GM in Sodium Chloride 0.9% 100 ML IVPB SCH ×3 (04:39→21:08)
[2021-09-21 04:54] LABS: #Eosinphils 0.3 thou/uL (0.0-0.7); #Lymphocytes 1.8 thou/uL (1.20-3.40); #Monocytes 1.6 thou/uL (0.11-0.59); #Neutrophils 8.4 thou/uL (1.40-6.50); %Basophils 0.1 % (0.0-1.0); %Eosinophils 2.2 % (0.0-10.0); %Lymphocytes 14.6 % (21.0-51.0); %Monocytes 13.2 % (0.0-10.0); Hemoglobin 15.2 g/dL (14.0-18.0); Mean Corpuscular HGB CONC 31.7 g/dL (32.0-36.0); Mean Corpuscular Hemoglobin 31.2 pg (27.0-31.0); Mean Corpuscular Volume 98.7 fL (78.0-98.0); Mean Platelet Volume 8.1 fL (7.4-10.4); Platelet Count 274 thou/uL (130-400); RBC Distribution Width 13.3 % (11.5-14.5); Red Blood Cell (RBC) Count 4.86 mill/uL (4.70-6.10)
[2021-09-21 05:20] LABS: ALT (SGPT) 23 U/L (8-55); AST (SGOT) 9 U/L (5-34); Albumin 3.1 g/dL (3.5-5.0); Alkaline Phosphatase 40 U/L (40-110); Anion Gap 13 mmol/L (10-20); BUN (Urea Nitrogen) 30 mg/dL (8.9-20.6); Bilirubin, Total 0.6 mg/dL (0.2-1.2); Calc. Creatinine Clearance 254 mL/min (70-130); Calcium 8.8 mg/dL (7.8-10.44); Carbon Dioxide 25 mmol/L (22-29); Chloride 107 mmol/L (98-107); Globulin 2.7 g/dL (2.4-3.5); Glucose 182 mg/dL (70-105); Potassium 3.7 mmol/L (3.5-5.1); Protein, Total 5.8 g/dL (6.0-8.3); Sodium 141 mmol/L (136-145)
[2021-09-21] MEDS: Mometasone 200 MCG/Formoterol 5 MCG 120 PUFF INHALER INH SCH ×2 (06:59→18:51)
[2021-09-21 08:09] LABS: Actual Bicarbonate (HCO3a) 24.5 mEq/L (22-28); Base Excess (BEa) -0.3 mEq/L (-2.0 to +3.0); CO2 Tension 40.7 mmHg (35.0-45.0); Calcium, Ionized (arterial) 1.17 mmol/L (1.12-1.30); Carboxyhemoglobin (COHb) 1.1 gm% (0.0-3.0); Hemoglobin (Hb) 15.7 g/dL (14.0-18.0); Potassium - ABG Lab 3.59 mmol/L (3.70-5.30)
[2021-09-21 08:26] LABS: Puncture Site RRA
[2021-09-21 08:27] LABS: ALV-art Gradient 167.325 mmHg (0-20)
[2021-09-21] MEDS ORDERED: Dexamethasone 10 MG/ML VIAL SLOW IVP SCH (09:00)
[2021-09-21] MEDS: Pantoprazole 40 MG VIAL IVP SCH (09:44)
[2021-09-21] MEDS: Enoxaparin Sodium 40 MG/0.4 ML SYRINGE SC SCH ×2 (09:44→21:08)
[2021-09-21] MEDS: Amlodipine 5 MG TAB PER TUBE SCH (09:45)
[2021-09-21] MEDS: Vancomycin 1.5 GRAM/300 ML BAG 1.5 GM in Premix Bag 1 BAG IVPB SCH ×2 (09:49→17:50)
[2021-09-21] MEDS: NPH, Human Insulin Isophane 300 UNIT/3 ML VIAL SC SCH ×2 (09:50→19:54)
[2021-09-21] MEDS ORDERED: DC Sedation Protocol FS ONE (10:07)
[2021-09-21] MEDS: Micafungin 100 MG in Sodium Chloride 0.9% 100 ML IVPB SCH (11:04)
[2021-09-21 16:10] LABS: Vancomycin, Trough 19.3 ug/mL
[2021-09-21] MEDS: HumaLOG 300 UNITS/3 ML VIAL SC PRN (17:46)
[2021-09-21] MEDS: Polyethylene Glycol 3350 17 GM Packet PER TUBE SCH (20:31)
[2021-09-21] MEDS: BARICITINIB 2 MG TAB PO SCH (21:07)
[2021-09-22] MEDS: Vancomycin 1.5 GRAM/300 ML BAG 1.5 GM in Premix Bag 1 BAG IVPB SCH (01:14)
[2021-09-22] MEDS: Dexmedetomidine 1,000 MCG in Sodium Chloride 0.9% 250 ML 240 ML IVPB SCH (03:25)
[2021-09-22] MEDS: Meropenem 1 GM in Sodium Chloride 0.9% 100 ML IVPB SCH (06:10)
[2021-09-22] MEDS: Mometasone 200 MCG/Formoterol 5 MCG 120 PUFF INHALER INH SCH ×2 (06:52→18:54)
[2021-09-22] MEDS ORDERED: Dexamethasone 10 MG/ML VIAL SLOW IVP SCH (08:26)
[2021-09-22] MEDS: Pantoprazole 40 MG VIAL IVP SCH (09:12)
[2021-09-22] MEDS: Enoxaparin Sodium 40 MG/0.4 ML SYRINGE SC SCH ×2 (09:13→21:02)
[2021-09-22] MEDS: Dexamethasone 4 mg/ml Vial SLOW IVP SCH (09:13)
[2021-09-22] MEDS: Amlodipine 5 MG TAB PER TUBE SCH (09:27)
[2021-09-22] MEDS: NPH, Human Insulin Isophane 300 UNIT/3 ML VIAL SC SCH (09:29)
[2021-09-22] MEDS: BARICITINIB 2 MG TAB PO SCH (21:02)
[2021-09-23 04:46] LABS: #Eosinphils 0.8 thou/uL (0.0-0.7); #Lymphocytes 3.8 thou/uL (1.20-3.40); #Monocytes 2.3 thou/uL (0.11-0.59); #Neutrophils 9.1 thou/uL (1.40-6.50); %Basophils 0.3 % (0.0-1.0); %Eosinophils 5.1 % (0.0-10.0); %Lymphocytes 23.4 % (21.0-51.0); %Monocytes 14.5 % (0.0-10.0); %Neutrophils 56.6 % (42.0-75.0); Hemoglobin 15.7 g/dL (14.0-18.0); Mean Corpuscular HGB CONC 33.5 g/dL (32.0-36.0); Mean Corpuscular Hemoglobin 32.9 pg (27.0-31.0); Mean Corpuscular Volume 98.2 fL (78.0-98.0); Mean Platelet Volume 9.1 fL (7.4-10.4); Platelet Count 369 thou/uL (130-400); RBC Distribution Width 13.8 % (11.5-14.5); Red Blood Cell (RBC) Count 4.77 mill/uL (4.70-6.10); White Blood Cell (WBC) Count 16.1 thou/uL (4.8-10.8)
[2021-09-23 04:52] LABS: Anion Gap 15 mmol/L (10-20); BUN (Urea Nitrogen) 25 mg/dL (8.9-20.6); Calc. Creatinine Clearance 271 mL/min (70-130); Calcium 8.9 mg/dL (7.8-10.44); Carbon Dioxide 23 mmol/L (22-29); Chloride 104 mmol/L (98-107); Glucose 90 mg/dL (70-105); Magnesium 1.7 mg/dL (1.6-2.6); Phosphorus 3.3 mg/dL (2.3-4.7); Potassium 3.4 mmol/L (3.5-5.1); Sodium 139 mmol/L (136-145)
[2021-09-23] MEDS ORDERED: Sodium Chloride 0.9% 500 ML IV SCH (05:15)
[2021-09-23] MEDS ORDERED: Sodium Chloride 0.9% 250 ML 250 ML IV SCH (05:30)
[2021-09-23] MEDS: NPH, Human Insulin Isophane 300 UNIT/3 ML VIAL SC SCH (06:58)
[2021-09-23] MEDS ORDERED: Magnesium 2 GM/50 ML 2 GM in Premix Bag 1 BAG IVPB SCH (07:00)
[2021-09-23] MEDS: Mometasone 200 MCG/Formoterol 5 MCG 120 PUFF INHALER INH SCH ×2 (07:14→18:13)
[2021-09-23] MEDS ORDERED: Potassium Chloride 40 MEQ in Sodium Chloride 0.9% 250 ML 250 ML IVPB SCH (08:00)
[2021-09-23] MEDS: Pantoprazole 40 MG VIAL IVP SCH (08:40)
[2021-09-23] MEDS: Enoxaparin Sodium 40 MG/0.4 ML SYRINGE SC SCH ×2 (08:40→20:43)
[2021-09-23] MEDS: Amlodipine 5 MG TAB PER TUBE SCH (08:57)
[2021-09-23] MEDS: Dexamethasone 4 mg/ml Vial SLOW IVP SCH (09:02)
[2021-09-23] MEDS ORDERED: Metoprolol Tartrate 25 MG TAB PO SCH (10:00)
[2021-09-23] MEDS: Acetaminophen 650 MG/20.3 ML UDCUP PO PRN (10:03)
[2021-09-23] MEDS: HumaLOG 300 UNITS/3 ML VIAL SC PRN ×2 (10:29→16:14)
[2021-09-23] MEDS: Metoprolol Tartrate 25 MG TAB PO SCH (20:42)
[2021-09-24 03:49] LABS: #Basophils 0.1 thou/uL (0.0-0.2); #Eosinphils 0.4 thou/uL (0.0-0.7); #Lymphocytes 2.3 thou/uL (1.20-3.40); #Monocytes 2.3 thou/uL (0.11-0.59); #Neutrophils 11.9 thou/uL (1.40-6.50); %Basophils 0.3 % (0.0-1.0); %Eosinophils 2.1 % (0.0-10.0); %Lymphocytes 13.5 % (21.0-51.0); %Monocytes 13.4 % (0.0-10.0); %Neutrophils 70.7 % (42.0-75.0); Mean Corpuscular HGB CONC 31.2 g/dL (32.0-36.0); Mean Corpuscular Hemoglobin 30.7 pg (27.0-31.0); Mean Corpuscular Volume 98.3 fL (78.0-98.0); Mean Platelet Volume 7.4 fL (7.4-10.4); Platelet Count 368 thou/uL (130-400); RBC Distribution Width 13.8 % (11.5-14.5); Red Blood Cell (RBC) Count 4.87 mill/uL (4.70-6.10); White Blood Cell (WBC) Count 16.8 thou/uL (4.8-10.8)
[2021-09-24] MEDS: Mometasone 200 MCG/Formoterol 5 MCG 120 PUFF INHALER INH SCH (06:34)
[2021-09-24] MEDS: Amlodipine 5 MG TAB PER TUBE SCH (08:14)
[2021-09-24] MEDS: Metoprolol Tartrate 25 MG TAB PO SCH ×2 (08:15→20:30)
[2021-09-24] MEDS: Enoxaparin Sodium 40 MG/0.4 ML SYRINGE SC SCH ×2 (08:15→20:30)
[2021-09-24] MEDS: Pantoprazole 40 MG VIAL IVP SCH (08:15)
[2021-09-24] MEDS: Dexamethasone 4 mg/ml Vial SLOW IVP SCH (08:15)
[2021-09-24] MEDS ORDERED: Lactated Ringer's 500 ML IV SCH (10:45)
[2021-09-24] MEDS: ALPRAZolam 0.25 MG TAB PO PRN ×2 (10:55→20:30)
[2021-09-24] MEDS: HumaLOG 300 UNITS/3 ML VIAL SC PRN (17:04)
[2021-09-24] MEDS: Acetaminophen 650 MG Suppository PR PRN (18:07)
[2021-09-24 19:44] LABS: CO2 Tension 37.7 mmHg (35.0-45.0); O2 Tension (PaO2), arterial 71.4 mmHg (80.0-100.0); pH, Arterial 7.47 (7.35-7.45)
[2021-09-24 19:45] LABS: ALV-art Gradient 252.235 mmHg (0-20); Actual Bicarbonate (HCO3a) 26.8 mEq/L (22-28); Base Excess (BEa) 3.1 mEq/L (-2.0 to +3.0); Calcium, Ionized (arterial) 1.16 mmol/L (1.12-1.30); Carboxyhemoglobin (COHb) 2.6 gm% (0.0-3.0); Hemoglobin (Hb) 14.9 g/dL (14.0-18.0); Potassium - ABG Lab 3.86 mmol/L (3.70-5.30); Puncture Site RBR
[2021-09-25 04:12] LABS: Band 12 % (5-11); Eosinophils 2 % (0-10); Lymphocytes 6 % (21-51); MDiff Complete? YES; Mean Corpuscular HGB CONC 31.6 g/dL (32.0-36.0); Mean Corpuscular Hemoglobin 31.4 pg (27.0-31.0); Mean Corpuscular Volume 99.3 fL (78.0-98.0); Mean Platelet Volume 7.7 fL (7.4-10.4); Monocytes 9 % (0-10); Neutrophil 71 % (42-75); Nucleated RBC 1 % (0); Platelet Count 327 thou/uL (130-400); Platelet Morphology Comment Appears Adequate; RBC Distribution Width 13.9 % (11.5-14.5); Red Blood Cell (RBC) Count 4.47 mill/uL (4.70-6.10)
[2021-09-25 04:16] LABS: Anion Gap 13 mmol/L (10-20); BUN (Urea Nitrogen) 26 mg/dL (8.9-20.6); Calc. Creatinine Clearance 282 mL/min (70-130); Calcium 8.8 mg/dL (7.8-10.44); Carbon Dioxide 25 mmol/L (22-29); Chloride 105 mmol/L (98-107); Glucose 181 mg/dL (70-105); Potassium 3.8 mmol/L (3.5-5.1); Sodium 139 mmol/L (136-145)
[2021-09-25] MEDS: Mometasone 200 MCG/Formoterol 5 MCG 120 PUFF INHALER INH SCH ×3 (07:00→19:31)
[2021-09-25] MEDS: Enoxaparin Sodium 40 MG/0.4 ML SYRINGE SC SCH ×2 (09:38→20:05)
[2021-09-25] MEDS: Pantoprazole 40 MG VIAL IVP SCH (09:38)
[2021-09-25] MEDS: Dexamethasone 4 mg/ml Vial SLOW IVP SCH (09:38)
[2021-09-25] MEDS: Amlodipine 5 MG TAB PER TUBE SCH (09:39)
[2021-09-25] MEDS: Metoprolol Tartrate 25 MG TAB PO SCH ×2 (09:39→20:04)
[2021-09-25] MEDS: ALPRAZolam 0.25 MG TAB PO PRN ×2 (09:45→22:03)
[2021-09-25] MEDS: HumaLOG 300 UNITS/3 ML VIAL SC PRN ×2 (16:26→22:04)
[2021-09-26 06:16] LABS: #Eosinphils 0.4 thou/uL (0.0-0.7); #Lymphocytes 2.2 thou/uL (1.20-3.40); #Monocytes 1.2 thou/uL (0.11-0.59); #Neutrophils 19.8 thou/uL (1.40-6.50); %Basophils 0.2 % (0.0-1.0); %Eosinophils 1.5 % (0.0-10.0); %Lymphocytes 9.4 % (21.0-51.0); %Monocytes 5.1 % (0.0-10.0); %Neutrophils 83.7 % (42.0-75.0); Hemoglobin 13.4 g/dL (14.0-18.0); Mean Corpuscular HGB CONC 32.3 g/dL (32.0-36.0); Mean Platelet Volume 7.1 fL (7.4-10.4); Platelet Count 293 thou/uL (130-400); RBC Distribution Width 13.6 % (11.5-14.5); Red Blood Cell (RBC) Count 4.19 mill/uL (4.70-6.10); White Blood Cell (WBC) Count 23.7 thou/uL (4.8-10.8)
[2021-09-26 06:42] LABS: Anion Gap 14 mmol/L (10-20); BUN (Urea Nitrogen) 21 mg/dL (8.9-20.6); Calc. Creatinine Clearance 291 mL/min (70-130); Carbon Dioxide 26 mmol/L (22-29); Chloride 98 mmol/L (98-107); Glucose 138 mg/dL (70-105); Potassium 3.9 mmol/L (3.5-5.1); Sodium 134 mmol/L (136-145)
[2021-09-26] MEDS: Mometasone 200 MCG/Formoterol 5 MCG 120 PUFF INHALER INH SCH ×2 (07:53→19:38)
[2021-09-26] MEDS ORDERED: Lansoprazole 3 MG/ML ORAL SUSPENSION PER TUBE SCH (09:00)
[2021-09-26] MEDS: Enoxaparin Sodium 40 MG/0.4 ML SYRINGE SC SCH ×2 (09:16→21:28)
[2021-09-26] MEDS: Dexamethasone 4 mg/ml Vial SLOW IVP SCH (09:16)
[2021-09-26] MEDS: Amlodipine 5 MG TAB PER TUBE SCH (09:16)
[2021-09-26] MEDS: Metoprolol Tartrate 25 MG TAB PO SCH ×2 (09:21→21:28)
[2021-09-26] MEDS ORDERED: Dexamethasone 4 mg/ml Vial SLOW IVP SCH (12:15)
[2021-09-26] MEDS: HumaLOG 300 UNITS/3 ML VIAL SC PRN ×2 (17:36→21:33)
[2021-09-27] MEDS: ALPRAZolam 0.25 MG TAB PO PRN (01:35)
[2021-09-27 04:05] LABS: #Eosinphils 0.1 thou/uL (0.0-0.7); #Lymphocytes 1.4 thou/uL (1.20-3.40); #Monocytes 1.1 thou/uL (0.11-0.59); #Neutrophils 20.3 thou/uL (1.40-6.50); %Basophils 0.1 % (0.0-1.0); %Eosinophils 0.2 % (0.0-10.0); %Lymphocytes 6.3 % (21.0-51.0); %Monocytes 4.6 % (0.0-10.0); %Neutrophils 88.7 % (42.0-75.0); Hemoglobin 12.8 g/dL (14.0-18.0); Mean Corpuscular HGB CONC 30.7 g/dL (32.0-36.0); Mean Corpuscular Hemoglobin 30.2 pg (27.0-31.0); Mean Corpuscular Volume 98.5 fL (78.0-98.0); Mean Platelet Volume 7.2 fL (7.4-10.4); Platelet Count 338 thou/uL (130-400); RBC Distribution Width 13.8 % (11.5-14.5); Red Blood Cell (RBC) Count 4.24 mill/uL (4.70-6.10); White Blood Cell (WBC) Count 22.9 thou/uL (4.8-10.8)
[2021-09-27] MEDS: HumaLOG 300 UNITS/3 ML VIAL SC PRN ×3 (04:05→17:04)
[2021-09-27] MEDS: Mometasone 200 MCG/Formoterol 5 MCG 120 PUFF INHALER INH SCH ×2 (07:48→18:36)
[2021-09-27] MEDS: Amlodipine 5 MG TAB PER TUBE SCH (08:22)
[2021-09-27] MEDS: Enoxaparin Sodium 40 MG/0.4 ML SYRINGE SC SCH ×2 (08:23→21:17)
[2021-09-27] MEDS: Dexamethasone 4 mg/ml Vial SLOW IVP SCH (08:23)
[2021-09-27] MEDS: Metoprolol Tartrate 25 MG TAB PO SCH ×2 (08:24→21:17)
[2021-09-27 10:09] LABS: Anion Gap 15 mmol/L (10-20); BUN (Urea Nitrogen) 16 mg/dL (8.9-20.6); Calc. Creatinine Clearance 275 mL/min (70-130); Calcium 9.7 mg/dL (7.8-10.44); Carbon Dioxide 26 mmol/L (22-29); Chloride 95 mmol/L (98-107); Glucose 147 mg/dL (70-105); Potassium 3.8 mmol/L (3.5-5.1); Sodium 132 mmol/L (136-145)
[2021-09-27] MEDS: Amlodipine 10 MG TAB PO SCH (11:32)
[2021-09-28 03:58] LABS: #Eosinphils 0.2 thou/uL (0.0-0.7); #Monocytes 1.5 thou/uL (0.11-0.59); #Neutrophils 16.7 thou/uL (1.40-6.50); %Basophils 0.2 % (0.0-1.0); %Eosinophils 0.9 % (0.0-10.0); %Lymphocytes 9.9 % (21.0-51.0); %Monocytes 7.4 % (0.0-10.0); %Neutrophils 81.5 % (42.0-75.0); Hemoglobin 13.3 g/dL (14.0-18.0); Mean Corpuscular HGB CONC 32.5 g/dL (32.0-36.0); Mean Corpuscular Hemoglobin 31.6 pg (27.0-31.0); Mean Corpuscular Volume 97.1 fL (78.0-98.0); Mean Platelet Volume 7.4 fL (7.4-10.4); Platelet Count 301 thou/uL (130-400); RBC Distribution Width 13.8 % (11.5-14.5); White Blood Cell (WBC) Count 20.5 thou/uL (4.8-10.8)
[2021-09-28 04:16] LABS: ALT (SGPT) 25 U/L (8-55); AST (SGOT) 13 U/L (5-34); Albumin 3.3 g/dL (3.5-5.0); Alkaline Phosphatase 59 U/L (40-110); Anion Gap 13 mmol/L (10-20); BUN (Urea Nitrogen) 17 mg/dL (8.9-20.6); Bilirubin, Total 1.4 mg/dL (0.2-1.2); Calc. Creatinine Clearance 266 mL/min (70-130); Carbon Dioxide 28 mmol/L (22-29); Chloride 94 mmol/L (98-107); Globulin 2.8 g/dL (2.4-3.5); Glucose 172 mg/dL (70-105); Magnesium 1.5 mg/dL (1.6-2.6); Potassium 3.7 mmol/L (3.5-5.1); Protein, Total 6.1 g/dL (6.0-8.3); Sodium 131 mmol/L (136-145)
[2021-09-28] MEDS ORDERED: Magnesium 2 GM/50 ML 2 GM in Premix Bag 1 BAG IVPB SCH (04:30)
[2021-09-28] MEDS: Enoxaparin Sodium 40 MG/0.4 ML SYRINGE SC SCH ×2 (07:53→21:08)
[2021-09-28] MEDS: Metoprolol Tartrate 25 MG TAB PO SCH ×2 (07:53→21:08)
[2021-09-28] MEDS: Amlodipine 10 MG TAB PO SCH (07:53)
[2021-09-28] MEDS: Dexamethasone 4 mg/ml Vial SLOW IVP SCH (07:54)
[2021-09-28] MEDS: Mometasone 200 MCG/Formoterol 5 MCG 120 PUFF INHALER INH SCH ×2 (08:19→19:00)
[2021-09-28] MEDS ORDERED: Metoprolol Tartrate 25 MG TAB PO SCH (09:45)
[2021-09-28] MEDS: HumaLOG 300 UNITS/3 ML VIAL SC PRN (18:22)
[2021-09-28] MEDS: ALPRAZolam 0.25 MG TAB PO PRN (21:12)
[2021-09-29 03:46] LABS: #Basophils 0.1 thou/uL (0.0-0.2); #Eosinphils 0.4 thou/uL (0.0-0.7); #Lymphocytes 2.3 thou/uL (1.20-3.40); #Monocytes 1.4 thou/uL (0.11-0.59); #Neutrophils 13.8 thou/uL (1.40-6.50); %Basophils 0.4 % (0.0-1.0); %Eosinophils 2.3 % (0.0-10.0); %Monocytes 7.7 % (0.0-10.0); %Neutrophils 76.6 % (42.0-75.0); Hemoglobin 12.7 g/dL (14.0-18.0); Mean Corpuscular HGB CONC 32.4 g/dL (32.0-36.0); Mean Corpuscular Hemoglobin 32.2 pg (27.0-31.0); Mean Corpuscular Volume 99.2 fL (78.0-98.0); Mean Platelet Volume 7.5 fL (7.4-10.4); Platelet Count 249 thou/uL (130-400); RBC Distribution Width 13.8 % (11.5-14.5); Red Blood Cell (RBC) Count 3.94 mill/uL (4.70-6.10); White Blood Cell (WBC) Count 17.9 thou/uL (4.8-10.8)
[2021-09-29 04:16] LABS: ALT (SGPT) 28 U/L (8-55); AST (SGOT) 13 U/L (5-34); Albumin 3.3 g/dL (3.5-5.0); Alkaline Phosphatase 56 U/L (40-110); Anion Gap 11 mmol/L (10-20); BUN (Urea Nitrogen) 15 mg/dL (8.9-20.6); Bilirubin, Total 1.2 mg/dL (0.2-1.2); Calc. Creatinine Clearance 277 mL/min (70-130); Calcium 8.9 mg/dL (7.8-10.44); Carbon Dioxide 29 mmol/L (22-29); Chloride 95 mmol/L (98-107); Globulin 2.9 g/dL (2.4-3.5); Glucose 157 mg/dL (70-105); Magnesium 1.7 mg/dL (1.6-2.6); Potassium 3.4 mmol/L (3.5-5.1); Protein, Total 6.2 g/dL (6.0-8.3); Sodium 132 mmol/L (136-145)
[2021-09-29] MEDS ORDERED: Magnesium 2 GM/50 ML 2 GM in Premix Bag 1 BAG IVPB SCH (05:45)
[2021-09-29] MEDS: Mometasone 200 MCG/Formoterol 5 MCG 120 PUFF INHALER INH SCH ×2 (07:24→19:12)
[2021-09-29] MEDS: Amlodipine 10 MG TAB PO SCH (07:39)
[2021-09-29] MEDS: metFORMIN 500 MG TAB PO SCH ×2 (07:39→16:49)
[2021-09-29] MEDS: Enoxaparin Sodium 40 MG/0.4 ML SYRINGE SC SCH ×2 (07:39→21:25)
[2021-09-29] MEDS: Metoprolol Tartrate 25 MG TAB PO SCH ×2 (07:39→21:25)
[2021-09-29] MEDS: Dexamethasone 4 mg/ml Vial SLOW IVP SCH (07:40)
[2021-09-29] MEDS: Potassium Chloride 20 MEQ in Premix Bag 1 BAG IVPB SCH ×2 (08:05→10:06)
[2021-09-29] MEDS: cloNIDine 0.1 MG TAB PO SCH (21:25)
[2021-09-30 04:03] LABS: #Basophils 0.1 thou/uL (0.0-0.2); #Eosinphils 0.4 thou/uL (0.0-0.7); #Lymphocytes 2.7 thou/uL (1.20-3.40); #Monocytes 1.3 thou/uL (0.11-0.59); #Neutrophils 12.2 thou/uL (1.40-6.50); %Basophils 0.4 % (0.0-1.0); %Eosinophils 2.6 % (0.0-10.0); %Lymphocytes 16.2 % (21.0-51.0); %Neutrophils 72.7 % (42.0-75.0); Hemoglobin 12.2 g/dL (14.0-18.0); Mean Corpuscular HGB CONC 32.3 g/dL (32.0-36.0); Mean Corpuscular Hemoglobin 31.9 pg (27.0-31.0); Mean Corpuscular Volume 98.8 fL (78.0-98.0); Mean Platelet Volume 7.1 fL (7.4-10.4); Platelet Count 233 thou/uL (130-400); RBC Distribution Width 13.8 % (11.5-14.5); Red Blood Cell (RBC) Count 3.83 mill/uL (4.70-6.10); White Blood Cell (WBC) Count 16.8 thou/uL (4.8-10.8)
[2021-09-30 04:27] LABS: ALT (SGPT) 42 U/L (8-55); AST (SGOT) 18 U/L (5-34); Albumin 3.2 g/dL (3.5-5.0); Alkaline Phosphatase 58 U/L (40-110); Anion Gap 14 mmol/L (10-20); BUN (Urea Nitrogen) 14 mg/dL (8.9-20.6); Bilirubin, Total 1.1 mg/dL (0.2-1.2); Calc. Creatinine Clearance 301 mL/min (70-130); Calcium 8.5 mg/dL (7.8-10.44); Carbon Dioxide 27 mmol/L (22-29); Chloride 97 mmol/L (98-107); Globulin 2.7 g/dL (2.4-3.5); Glucose 157 mg/dL (70-105); Magnesium 1.7 mg/dL (1.6-2.6); Potassium 3.4 mmol/L (3.5-5.1); Protein, Total 5.9 g/dL (6.0-8.3); Sodium 135 mmol/L (136-145)
[2021-09-30] MEDS ORDERED: Potassium Chloride 20 MEQ in Premix Bag 1 BAG IVPB SCH (05:15)
[2021-09-30] MEDS ORDERED: Magnesium 2 GM/50 ML 2 GM in Premix Bag 1 BAG IVPB SCH (05:15)
[2021-09-30] MEDS ORDERED: Potassium Chloride 20 MEQ TAB PO SCH (05:45)
[2021-09-30] MEDS: Mometasone 200 MCG/Formoterol 5 MCG 120 PUFF INHALER INH SCH ×2 (08:04→19:07)
[2021-09-30] MEDS: Amlodipine 10 MG TAB PO SCH (08:34)
[2021-09-30] MEDS: metFORMIN 500 MG TAB PO SCH ×2 (08:34→16:57)
[2021-09-30] MEDS: cloNIDine 0.1 MG TAB PO SCH ×2 (08:34→20:33)
[2021-09-30] MEDS: Metoprolol Tartrate 25 MG TAB PO SCH ×2 (08:35→20:33)
[2021-09-30] MEDS: Dexamethasone 4 mg/ml Vial SLOW IVP SCH (08:35)
[2021-09-30] MEDS: Enoxaparin Sodium 40 MG/0.4 ML SYRINGE SC SCH ×2 (08:35→20:34)
[2021-09-30] MEDS ORDERED: GUAIFENESIN SF SOLN 200 MG/10 ML UDCUP PO PRN (21:23)
[2021-10-01 04:07] LABS: #Eosinphils 0.1 thou/uL (0.0-0.7); #Lymphocytes 2.7 thou/uL (1.20-3.40); #Monocytes 1.1 thou/uL (0.11-0.59); #Neutrophils 14.7 thou/uL (1.40-6.50); %Basophils 0.2 % (0.0-1.0); %Eosinophils 0.6 % (0.0-10.0); %Lymphocytes 14.3 % (21.0-51.0); %Monocytes 5.8 % (0.0-10.0); %Neutrophils 79.1 % (42.0-75.0); Hemoglobin 12.5 g/dL (14.0-18.0); Mean Corpuscular HGB CONC 32.6 g/dL (32.0-36.0); Mean Corpuscular Hemoglobin 32.1 pg (27.0-31.0); Mean Corpuscular Volume 98.4 fL (78.0-98.0); Mean Platelet Volume 7.3 fL (7.4-10.4); Platelet Count 188 thou/uL (130-400); RBC Distribution Width 14.2 % (11.5-14.5); Red Blood Cell (RBC) Count 3.89 mill/uL (4.70-6.10); White Blood Cell (WBC) Count 18.5 thou/uL (4.8-10.8)
[2021-10-01 04:22] LABS: ALT (SGPT) 52 U/L (8-55); AST (SGOT) 14 U/L (5-34); Albumin 3.2 g/dL (3.5-5.0); Alkaline Phosphatase 62 U/L (40-110); Anion Gap 13 mmol/L (10-20); BUN (Urea Nitrogen) 11 mg/dL (8.9-20.6); Bilirubin, Total 0.9 mg/dL (0.2-1.2); Calc. Creatinine Clearance 259 mL/min (70-130); Calcium 8.8 mg/dL (7.8-10.44); Carbon Dioxide 27 mmol/L (22-29); Chloride 98 mmol/L (98-107); Glucose 176 mg/dL (70-105); Magnesium 1.6 mg/dL (1.6-2.6); Potassium 3.7 mmol/L (3.5-5.1); Protein, Total 6.2 g/dL (6.0-8.3); Sodium 134 mmol/L (136-145)
[2021-10-01] MEDS ORDERED: Magnesium 2 GM/50 ML 2 GM in Premix Bag 1 BAG IVPB SCH (05:00)
[2021-10-01] MEDS: metFORMIN 500 MG TAB PO SCH ×2 (08:01→17:03)
[2021-10-01] MEDS: Metoprolol Tartrate 25 MG TAB PO SCH ×2 (08:01→20:36)
[2021-10-01] MEDS: Enoxaparin Sodium 40 MG/0.4 ML SYRINGE SC SCH ×2 (08:02→20:36)
[2021-10-01] MEDS: cloNIDine 0.1 MG TAB PO SCH ×2 (08:02→20:35)
[2021-10-01] MEDS: Amlodipine 10 MG TAB PO SCH (08:02)
[2021-10-01] MEDS: Dexamethasone 4 mg/ml Vial SLOW IVP SCH (08:02)
[2021-10-01] MEDS: Mometasone 200 MCG/Formoterol 5 MCG 120 PUFF INHALER INH SCH ×2 (08:32→21:48)
[2021-10-01] MEDS: HumaLOG 300 UNITS/3 ML VIAL SC PRN (11:26)
[2021-10-01] MEDS ORDERED: metFORMIN 500 MG TAB PO SCH (12:45)
[2021-10-02 04:44] LABS: Band 6 % (5-11); Hemoglobin 12.5 g/dL (14.0-18.0); Lymphocytes 23 % (21-51); MDiff Complete? YES; Mean Corpuscular Hemoglobin 31.6 pg (27.0-31.0); Mean Corpuscular Volume 98.7 fL (78.0-98.0); Monocytes 7 % (0-10); Neutrophil 64 % (42-75); Platelet Count 198 thou/uL (130-400); RBC Distribution Width 14.3 % (11.5-14.5); Red Blood Cell (RBC) Count 3.95 mill/uL (4.70-6.10); White Blood Cell (WBC) Count 18.3 thou/uL (4.8-10.8)
[2021-10-02] MEDS: HumaLOG 300 UNITS/3 ML VIAL SC PRN ×2 (05:44→16:54)
[2021-10-02] MEDS: Mometasone 200 MCG/Formoterol 5 MCG 120 PUFF INHALER INH SCH ×2 (07:54→18:45)
[2021-10-02] MEDS: Metoprolol Tartrate 25 MG TAB PO SCH ×2 (08:02→21:59)
[2021-10-02] MEDS: cloNIDine 0.1 MG TAB PO SCH ×2 (08:02→22:00)
[2021-10-02] MEDS: Enoxaparin Sodium 40 MG/0.4 ML SYRINGE SC SCH ×2 (08:03→22:00)
[2021-10-02] MEDS: Amlodipine 10 MG TAB PO SCH (08:03)
[2021-10-02] MEDS: metFORMIN 500 MG TAB PO SCH ×2 (08:03→16:54)
[2021-10-03] MEDS: Mometasone 200 MCG/Formoterol 5 MCG 120 PUFF INHALER INH SCH ×2 (07:46→19:15)
[2021-10-03] MEDS: Metoprolol Tartrate 25 MG TAB PO SCH ×2 (09:32→20:27)
[2021-10-03] MEDS: metFORMIN 500 MG TAB PO SCH ×2 (09:32→17:16)
[2021-10-03] MEDS: Amlodipine 10 MG TAB PO SCH (09:34)
[2021-10-03] MEDS: cloNIDine 0.1 MG TAB PO SCH ×2 (09:34→20:27)
[2021-10-03] MEDS: Enoxaparin Sodium 40 MG/0.4 ML SYRINGE SC SCH ×2 (09:35→20:27)
[2021-10-04 04:11] LABS: #Eosinphils 0.4 thou/uL (0.0-0.7); #Lymphocytes 2.7 thou/uL (1.20-3.40); #Monocytes 0.9 thou/uL (0.11-0.59); %Basophils 0.3 % (0.0-1.0); %Eosinophils 3.8 % (0.0-10.0); %Lymphocytes 24.7 % (21.0-51.0); %Monocytes 8.2 % (0.0-10.0); Hemoglobin 12.7 g/dL (14.0-18.0); Mean Corpuscular HGB CONC 31.9 g/dL (32.0-36.0); Mean Corpuscular Hemoglobin 31.5 pg (27.0-31.0); Mean Corpuscular Volume 98.9 fL (78.0-98.0); Platelet Count 143 thou/uL (130-400); RBC Distribution Width 14.6 % (11.5-14.5); Red Blood Cell (RBC) Count 4.04 mill/uL (4.70-6.10)
[2021-10-04 04:26] LABS: Anion Gap 13 mmol/L (10-20); BUN (Urea Nitrogen) 11 mg/dL (8.9-20.6); Calc. Creatinine Clearance 257 mL/min (70-130); Calcium 8.7 mg/dL (7.8-10.44); Carbon Dioxide 27 mmol/L (22-29); Chloride 98 mmol/L (98-107); Glucose 147 mg/dL (70-105); Potassium 3.3 mmol/L (3.5-5.1); Sodium 135 mmol/L (136-145)
[2021-10-04] MEDS ORDERED: Potassium Chloride 20 MEQ TAB PO SCH (07:00)
[2021-10-04] MEDS: Mometasone 200 MCG/Formoterol 5 MCG 120 PUFF INHALER INH SCH ×2 (07:01→19:32)
[2021-10-04] MEDS: Enoxaparin Sodium 40 MG/0.4 ML SYRINGE SC SCH ×2 (08:44→20:55)
[2021-10-04] MEDS: metFORMIN 500 MG TAB PO SCH ×2 (08:44→17:00)
[2021-10-04] MEDS: cloNIDine 0.1 MG TAB PO SCH ×2 (08:45→20:55)
[2021-10-04] MEDS: Amlodipine 10 MG TAB PO SCH (08:46)
[2021-10-04] MEDS: Metoprolol Tartrate 25 MG TAB PO SCH (20:55)
[2021-10-05] MEDS: Mometasone 200 MCG/Formoterol 5 MCG 120 PUFF INHALER INH SCH ×2 (08:19→23:15)
[2021-10-05] MEDS: Metoprolol Tartrate 25 MG TAB PO SCH ×3 (08:48→21:36)
[2021-10-05] MEDS: cloNIDine 0.1 MG TAB PO SCH ×2 (08:49→21:37)
[2021-10-05] MEDS: Amlodipine 10 MG TAB PO SCH (08:49)
[2021-10-05] MEDS: metFORMIN 500 MG TAB PO SCH ×2 (08:50→17:52)
[2021-10-05] MEDS: Enoxaparin Sodium 40 MG/0.4 ML SYRINGE SC SCH ×2 (08:50→21:36)
[2021-10-06] MEDS: metFORMIN 500 MG TAB PO SCH ×2 (08:36→17:04)
[2021-10-06] MEDS: Metoprolol Tartrate 25 MG TAB PO SCH ×2 (08:38→21:32)
[2021-10-06] MEDS: Amlodipine 10 MG TAB PO SCH (08:38)
[2021-10-06] MEDS: Enoxaparin Sodium 40 MG/0.4 ML SYRINGE SC SCH ×2 (08:39→21:33)
[2021-10-06] MEDS: Mometasone 200 MCG/Formoterol 5 MCG 120 PUFF INHALER INH SCH ×2 (10:38→23:31)
[2021-10-06] MEDS: cloNIDine 0.1 MG TAB PO SCH ×2 (11:40→21:32)
[2021-10-07] MEDS ORDERED: Sodium Chloride 0.65% Nasal 44 ML BOT EA NARE PRN (03:21)
[2021-10-07] MEDS: Mometasone 200 MCG/Formoterol 5 MCG 120 PUFF INHALER INH SCH ×2 (06:41→18:15)
[2021-10-07] MEDS: Enoxaparin Sodium 40 MG/0.4 ML SYRINGE SC SCH ×2 (09:05→20:39)
[2021-10-07] MEDS: metFORMIN 500 MG TAB PO SCH ×2 (09:05→18:14)
[2021-10-07] MEDS: Amlodipine 10 MG TAB PO SCH (09:05)
[2021-10-07] MEDS: Metoprolol Tartrate 25 MG TAB PO SCH ×2 (09:05→20:39)
[2021-10-07] MEDS: cloNIDine 0.1 MG TAB PO SCH ×2 (09:05→20:39)
[2021-10-07] MEDS: HumaLOG 300 UNITS/3 ML VIAL SC PRN (18:15)
[2021-10-08] MEDS: Mometasone 200 MCG/Formoterol 5 MCG 120 PUFF INHALER INH SCH ×2 (06:15→17:50)
[2021-10-08] MEDS: Enoxaparin Sodium 40 MG/0.4 ML SYRINGE SC SCH ×2 (09:10→21:19)
[2021-10-08] MEDS: Amlodipine 10 MG TAB PO SCH (09:12)
[2021-10-08] MEDS: metFORMIN 500 MG TAB PO SCH ×2 (09:12→17:50)
[2021-10-08] MEDS: cloNIDine 0.1 MG TAB PO SCH ×2 (09:13→21:21)
[2021-10-08] MEDS: Metoprolol Tartrate 25 MG TAB PO SCH ×2 (09:13→21:21)
[2021-10-08] MEDS ORDERED: traMADol HCl 50 MG TAB PO PRN (17:40)
[2021-10-08] MEDS: Lidocaine 5% Patch TD SCH (17:55)
[2021-10-09] MEDS: Transdermal Patch Removal TOP SCH (07:04)
[2021-10-09] MEDS: metFORMIN 500 MG TAB PO SCH ×2 (07:45→15:49)
[2021-10-09] MEDS: Enoxaparin Sodium 40 MG/0.4 ML SYRINGE SC SCH ×2 (07:45→20:42)
[2021-10-09] MEDS: cloNIDine 0.1 MG TAB PO SCH ×2 (07:45→20:43)
[2021-10-09] MEDS: Amlodipine 10 MG TAB PO SCH (07:46)
[2021-10-09] MEDS: Metoprolol Tartrate 25 MG TAB PO SCH ×2 (07:46→20:42)
[2021-10-09] MEDS: Mometasone 200 MCG/Formoterol 5 MCG 120 PUFF INHALER INH SCH ×2 (08:06→19:52)
[2021-10-09] MEDS ORDERED: Senokot S 8.6-50 MG TAB PO PRN (10:54)
[2021-10-09] MEDS ORDERED: hydrALAZINE 20 MG/ML VIAL SLOW IVP PRN (10:54)
[2021-10-09] MEDS ORDERED: Ondansetron ODT 4 MG TAB PO PRN (10:54)
[2021-10-09] MEDS ORDERED: Zolpidem Tartrate 5 MG TAB PO PRN (10:54)
[2021-10-09] MEDS ORDERED: HYDROcodone/Acetaminophen 5/325 mg Tablet PO PRN (10:54)
[2021-10-09] MEDS ORDERED: Calcium Carbonate 500 MG ChewTAB PO PRN (10:54)
[2021-10-09] MEDS ORDERED: Loperamide HCl 2 MG CAP PO PRN (10:54)
[2021-10-09] MEDS ORDERED: Cepastat Lozenges 1 LOZ PO PRN (10:54)
[2021-10-09] MEDS ORDERED: Ondansetron PF 4 MG/2 ML Vial IVP PRN (10:54)
[2021-10-09 11:25] VITALS: BMI 38.5
[2021-10-09] MEDS: Lidocaine 5% Patch TD SCH (15:50)
[2021-10-10] MEDS: Transdermal Patch Removal TOP SCH (05:32)
[2021-10-10 06:09] LABS: #Basophils 0.1 thou/uL (0.0-0.2); #Eosinphils 0.5 thou/uL (0.0-0.7); #Lymphocytes 3.2 thou/uL (1.20-3.40); #Neutrophils 5.4 thou/uL (1.40-6.50); %Basophils 0.5 % (0.0-1.0); %Eosinophils 5.3 % (0.0-10.0); %Lymphocytes 31.5 % (21.0-51.0); %Monocytes 9.9 % (0.0-10.0); %Neutrophils 52.8 % (42.0-75.0); Hemoglobin 12.4 g/dL (14.0-18.0); Mean Corpuscular HGB CONC 32.3 g/dL (32.0-36.0); Mean Corpuscular Hemoglobin 32.2 pg (27.0-31.0); Mean Corpuscular Volume 99.8 fL (78.0-98.0); Mean Platelet Volume 6.9 fL (7.4-10.4); Platelet Count 129 thou/uL (130-400); Red Blood Cell (RBC) Count 3.86 mill/uL (4.70-6.10); White Blood Cell (WBC) Count 10.2 thou/uL (4.8-10.8)
[2021-10-10 06:29] LABS: ALT (SGPT) 55 U/L (8-55); AST (SGOT) 20 U/L (5-34); Albumin 3.4 g/dL (3.5-5.0); Alkaline Phosphatase 54 U/L (40-110); Anion Gap 13 mmol/L (10-20); BUN (Urea Nitrogen) 8 mg/dL (8.9-20.6); Bilirubin, Total 0.9 mg/dL (0.2-1.2); CRP (Inflammatory) Less than 0.50 mg/dL (= or < 0.5); Calc. Creatinine Clearance 281 mL/min (70-130); Calcium 8.3 mg/dL (7.8-10.44); Carbon Dioxide 28 mmol/L (22-29); Chloride 101 mmol/L (98-107); Globulin 2.5 g/dL (2.4-3.5); Glucose 136 mg/dL (70-105); Magnesium 1.2 mg/dL (1.6-2.6); Phosphorus 3.8 mg/dL (2.3-4.7); Protein, Total 5.9 g/dL (6.0-8.3); Sodium 139 mmol/L (136-145)
[2021-10-10] MEDS: Mometasone 200 MCG/Formoterol 5 MCG 120 PUFF INHALER INH SCH ×2 (07:10→19:33)
[2021-10-10] MEDS: Enoxaparin Sodium 40 MG/0.4 ML SYRINGE SC SCH ×2 (08:03→21:08)
[2021-10-10] MEDS: Amlodipine 10 MG TAB PO SCH (08:04)
[2021-10-10] MEDS: Metoprolol Tartrate 25 MG TAB PO SCH ×2 (08:04→21:08)
[2021-10-10] MEDS: metFORMIN 500 MG TAB PO SCH ×2 (08:04→15:42)
[2021-10-10] MEDS: cloNIDine 0.1 MG TAB PO SCH ×2 (08:06→21:08)
[2021-10-10] MEDS ORDERED: Magnesium 2 GM/50 ML 2 GM in Premix Bag 1 BAG IVPB SCH (08:30)
[2021-10-10] MEDS ORDERED: Potassium Chloride 20 MEQ TAB PO SCH (08:30)
[2021-10-10] MEDS: Lidocaine 5% Patch TD SCH (15:42)
[2021-10-11] MEDS: Transdermal Patch Removal TOP SCH (05:42)
[2021-10-11] MEDS: Mometasone 200 MCG/Formoterol 5 MCG 120 PUFF INHALER INH SCH ×2 (07:11→22:51)
[2021-10-11] MEDS: cloNIDine 0.1 MG TAB PO SCH ×2 (08:16→21:06)
[2021-10-11] MEDS: Metoprolol Tartrate 25 MG TAB PO SCH ×2 (08:17→21:06)
[2021-10-11] MEDS: Amlodipine 10 MG TAB PO SCH (08:17)
[2021-10-11] MEDS: metFORMIN 500 MG TAB PO SCH ×2 (08:17→17:34)
[2021-10-11] MEDS: Enoxaparin Sodium 40 MG/0.4 ML SYRINGE SC SCH ×2 (08:18→21:06)
[2021-10-11] MEDS: Lidocaine 5% Patch TD SCH (19:27)
[2021-10-12 05:26] LABS: #Eosinphils 0.4 thou/uL (0.0-0.7); #Lymphocytes 3.3 thou/uL (1.20-3.40); #Neutrophils 4.8 thou/uL (1.40-6.50); %Basophils 0.1 % (0.0-1.0); %Eosinophils 4.3 % (0.0-10.0); %Lymphocytes 34.9 % (21.0-51.0); %Monocytes 10.5 % (0.0-10.0); %Neutrophils 50.3 % (42.0-75.0); Hemoglobin 11.8 g/dL (14.0-18.0); Mean Corpuscular HGB CONC 32.6 g/dL (32.0-36.0); Mean Corpuscular Hemoglobin 33.2 pg (27.0-31.0); Mean Platelet Volume 7.1 fL (7.4-10.4); Platelet Count 175 thou/uL (130-400); RBC Distribution Width 14.9 % (11.5-14.5); Red Blood Cell (RBC) Count 3.56 mill/uL (4.70-6.10); White Blood Cell (WBC) Count 9.6 thou/uL (4.8-10.8)
[2021-10-12 05:44] LABS: Anion Gap 8 mmol/L (10-20); BUN (Urea Nitrogen) 9 mg/dL (8.9-20.6); Calc. Creatinine Clearance 268 mL/min (70-130); Calcium 8.3 mg/dL (7.8-10.44); Carbon Dioxide 32 mmol/L (22-29); Chloride 104 mmol/L (98-107); Glucose 132 mg/dL (70-105); Magnesium 1.2 mg/dL (1.6-2.6); Sodium 141 mmol/L (136-145)
[2021-10-12 05:56] LABS: Potassium 2.9 mmol/L (3.5-5.1)
[2021-10-12] MEDS ORDERED: Magnesium 2 GM/50 ML 2 GM in Premix Bag 1 BAG IVPB SCH (06:45)
[2021-10-12] MEDS ORDERED: Electrolyte Replacement Protocol FS PRN (06:45)
[2021-10-12] MEDS ORDERED: Potassium Chloride 20 MEQ TAB PO SCH (06:45)
[2021-10-12] MEDS: Transdermal Patch Removal TOP SCH (07:08)
[2021-10-12] MEDS: Mometasone 200 MCG/Formoterol 5 MCG 120 PUFF INHALER INH SCH ×2 (07:57→19:03)
[2021-10-12] MEDS: Potassium Chloride 20 MEQ TAB PO SCH ×2 (08:59→11:57)
[2021-10-12] MEDS: metFORMIN 500 MG TAB PO SCH ×2 (09:00→16:57)
[2021-10-12] MEDS: cloNIDine 0.1 MG TAB PO SCH ×2 (09:00→20:55)
[2021-10-12] MEDS: Metoprolol Tartrate 25 MG TAB PO SCH ×2 (09:00→20:55)
[2021-10-12] MEDS: Amlodipine 10 MG TAB PO SCH (09:00)
[2021-10-12] MEDS: Enoxaparin Sodium 40 MG/0.4 ML SYRINGE SC SCH ×2 (09:01→20:54)
[2021-10-12] MEDS: Lidocaine 5% Patch TD SCH (16:19)
[2021-10-13] MEDS: Transdermal Patch Removal TOP SCH (05:00)
[2021-10-13 06:01] LABS: Anion Gap 8 mmol/L (10-20); BUN (Urea Nitrogen) 6 mg/dL (8.9-20.6); Calc. Creatinine Clearance 288 mL/min (70-130); Calcium 8.5 mg/dL (7.8-10.44); Carbon Dioxide 30 mmol/L (22-29); Chloride 105 mmol/L (98-107); Glucose 122 mg/dL (70-105); Magnesium 1.4 mg/dL (1.6-2.6); Phosphorus 3.3 mg/dL (2.3-4.7); Potassium 3.1 mmol/L (3.5-5.1); Sodium 140 mmol/L (136-145)
[2021-10-13] MEDS: Mometasone 200 MCG/Formoterol 5 MCG 120 PUFF INHALER INH SCH (07:00)
[2021-10-13] MEDS ORDERED: Magnesium 2 GM/50 ML 2 GM in Premix Bag 1 BAG IVPB SCH (07:00)
[2021-10-13] MEDS ORDERED: Potassium Chloride 20 MEQ TAB PO SCH (07:00)
[2021-10-13 08:58] VITALS: BP 144/87; TEMP 99.5
[2021-10-13] MEDS: metFORMIN 500 MG TAB PO SCH (09:15)
[2021-10-13] MEDS: Amlodipine 10 MG TAB PO SCH (09:16)
[2021-10-13] MEDS: cloNIDine 0.1 MG TAB PO SCH (09:16)
[2021-10-13] MEDS: Metoprolol Tartrate 25 MG TAB PO SCH (09:16)
[2021-10-13] MEDS: Enoxaparin Sodium 40 MG/0.4 ML SYRINGE SC SCH (09:17)
== END 2021-10-13 10:34 | disposition home or self-care (01) | DRG 207 ==
LOC: ERS 10:04 → CCU 12:57 → IMCU/EMU 09-28 01:35 → T4-B 10-05 18:22
PROVIDERS: ADMIT Internal Medicine; ATTEND Internal Medicine
PROC: XW0DXM6 Introduction of Baricitinib into Mouth and Pharynx, External Approach, New Technology Group 6 (ICD-10-PCS; 2021-09-09)
PROC: 5A09357 Assistance with Respiratory Ventilation, Less than 24 Consecutive Hours, Continuous Positive Airway Pressure (ICD-10-PCS; 2021-09-09)
PROC: 8E0ZXY6 Isolation (ICD-10-PCS; 2021-09-09)
PROC: 5A1955Z Respiratory Ventilation, Greater than 96 Consecutive Hours (ICD-10-PCS; principal; 2021-09-10)
PROC: 0BH18EZ Insertion of Endotracheal Airway into Trachea, Via Natural or Artificial Opening Endoscopic (ICD-10-PCS; 2021-09-10)
DX: U07.1 COVID-19 (principal); J12.82 Pneumonia due to coronavirus disease 2019; J96.01 Acute respiratory failure with hypoxia; I21.A1 Myocardial infarction type 2; J44.0 Chronic obstructive pulmonary disease with (acute) lower respiratory infection; G72.81 Critical illness myopathy; E66.01 Morbid (severe) obesity due to excess calories; I10 Essential (primary) hypertension; G47.33 Obstructive sleep apnea (adult) (pediatric); E87.6 Hypokalemia; E83.42 Hypomagnesemia; E11.69 Type 2 diabetes mellitus with other specified complication; R53.81 Other malaise; E11.65 Type 2 diabetes mellitus with hyperglycemia; R00.0 Tachycardia, unspecified; R13.10 Dysphagia, unspecified; Z68.38 Body mass index [BMI] 38.0-38.9, adult; Z79.82 Long term (current) use of aspirin; Z79.84 Long term (current) use of oral hypoglycemic drugs; Z79.01 Long term (current) use of anticoagulants; Z79.4 Long term (current) use of insulin; Z98.890 Other specified postprocedural states; Z87.891 Personal history of nicotine dependence
CPT/HCPCS: 0240U; 36415; 36416; 36600; 71045; 71275; 80048; 80053; 80076; 80202; 81003; 81015; 82553; 82805; 83605; 83735; 84100; 84484; 85025; 86140; 87040; 87070; 87205; 93005; 94002; 94003; 94660; 94664; 94760; 96372; 96374; 96375; 99292; C9113; J0330; J0692; J1100; J1650; J1815; J1940; J2060; J2185; J2248; J2270; J2405; J2704; J3010; J3370; J3475; J3480; J3490; J7050; J7120; J7131; Q9967

== ENCOUNTER 2022-02-05 19:30 | Outpatient (CLI) | payer OTHER | END 2022-02-05 19:31 | disposition home or self-care (01) | LOC: SLEEPLAB 19:30 | PROVIDERS: ATTEND Student in an Organized Health Care Education/Training Program | DX: G47.33 Obstructive sleep apnea (adult) (pediatric) (principal); R53.83 Other fatigue; R06.83 Snoring; J44.9 Chronic obstructive pulmonary disease, unspecified; E66.9 Obesity, unspecified; G47.00 Insomnia, unspecified; G47.10 Hypersomnia, unspecified; R09.02 Hypoxemia; I10 Essential (primary) hypertension; Z68.41 Body mass index [BMI] 40.0-44.9, adult | CPT/HCPCS: 95811 ==

== ENCOUNTER 2023-01-02 10:02 | Outpatient (CLI) | payer OTHER | END 2023-01-02 10:03 | disposition home or self-care (01) | LOC: RAD 10:02 | PROVIDERS: ATTEND Internal Medicine Critical Care Medicine | DX: R06.00 Dyspnea, unspecified (principal) | CPT/HCPCS: 71046 ==

== ENCOUNTER 2024-04-20 15:12 | Outpatient (CLI) | payer MEDICAID ==
[2024-04-20 17:15] LABS: #Basophils 0.05 10x3/uL (0.0-0.2); %Basophils 0.4 % (0.0-1.0); %Eosinophils 3.4 % (0.0-10.0); %Lymphocytes 29.1 % (21.0-51.0); %Monocytes 9.5 % (0.0-10.0); %Neutrophils 57.2 % (42.0-75.0); Hematocrit 41.2 % (42.0-52.0); Hemoglobin 13.7 g/dL (14.0-18.0); Mean Corpuscular HGB CONC 33.3 g/dL (32.0-36.0); Mean Corpuscular Hemoglobin 31.9 pg (27.0-31.0); Mean Corpuscular Volume 95.8 fL (78.0-98.0); Mean Platelet Volume 9.5 fL (7.4-10.4); Platelet Count 266 10x3/uL (130-400); RBC Distribution Width 12.6 % (11.5-14.5)
[2024-04-20 17:39] LABS: Anion Gap 12 mmol/L (10-20); BUN (Urea Nitrogen) 14 mg/dL (8.9-20.6); Calc. Creatinine Clearance 0 mL/min (70-130); Calcium 8.7 mg/dL (7.8-10.44); Carbon Dioxide 23 mmol/L (22-29); Chloride 107 mmol/L (98-107); Estimated GFR 80; Glucose 136 mg/dL (70-105); Potassium 3.7 mmol/L (3.5-5.1); Sodium 138 mmol/L (136-145)
== END 2024-04-20 15:13 | disposition home or self-care (01) ==
LOC: LABBT 15:12
PROVIDERS: ATTEND Orthopaedic Surgery Hand Surgery
DX: Z01.818 Encounter for other preprocedural examination (principal); M19.131 Post-traumatic osteoarthritis, right wrist
CPT/HCPCS: 80048; 85025; 93005; 93010

== ENCOUNTER 2024-05-27 10:01 | Day surgery (SDC) | payer OTHER ==
[2024-04-20 15:43] VITALS: BMI 43.9
[2024-05-27] MEDS ORDERED: PROPOFOL 200 MG/20 ML VIAL ONE (12:45)
== END 2024-05-27 17:35 | disposition home or self-care (01) ==
LOC: SDC 10:01
PROVIDERS: ATTEND Orthopaedic Surgery Hand Surgery
PROC: 0RGN07Z Fusion of Right Wrist Joint with Autologous Tissue Substitute, Open Approach (ICD-10-PCS; principal; 2024-05-27)
DX: M19.131 Post-traumatic osteoarthritis, right wrist (principal); I11.0 Hypertensive heart disease with heart failure; G47.33 Obstructive sleep apnea (adult) (pediatric); E11.9 Type 2 diabetes mellitus without complications; J44.9 Chronic obstructive pulmonary disease, unspecified; Z79.84 Long term (current) use of oral hypoglycemic drugs; Z79.85 Long-term (current) use of injectable non-insulin antidiabetic drugs; Z79.899 Other long term (current) drug therapy
CPT/HCPCS: C1713